=== PATIENT | female | born 1980 | race Caucasian/White ===

== ENCOUNTER 2018-04-07 19:47 | Emergency (ER) | payer MEDICARE, MEDICAID, SELFPAY ==
[2018-04-07 19:55] VITALS: BP 132/88; PULSE 73; RESP 22; TEMP 36.4; O2SAT 100
[2018-04-07] MEDS: diphenhydrAMINE 50 MG/ML VIAL (20:05)
[2018-04-07] MEDS: methylPREDNISolone SUCC 125 MG VIAL (20:06)
--- NOTE | 2018-04-07 20:24 | NUR.NOTE ---
Nursing Note: Pt continues to remain stable. VS normal - HR 66, O2 100% on RA. No complaints of symptoms at this time. Friend in room. Continue to monitor
--- NOTE | 2018-04-07 21:48 | ED.GENADUL ---
Disposition Clinical Impression: Bee sting Disposition: HOME Condition: Good Instructions: Insect Bite or Sting (ED) Additional Instructions: Please take medication as instructed. Please only use the epinephrine if you notice difficulty breathing, vomiting, diarrhea. If you notice any worsening of your symptoms, or any new symptoms such as vomiting, diarrhea, fever, chills, shortness of breath, chest pain, numbness, weakness, or fainting , please return immediately to the emergency department for reevaluation. Please follow up with your primary care provider as soon as possible for reassessment and reevaluation. As always, it was a pleasure participating in your medical care today. Prescriptions: Diphenhydramine HCl [Benadryl] 25 mg PO Q6H #100 capsule Epinephrine [Epipen 2-Presley] 0.3 mg IJ PRN PRN #2 auto.injct PRN Reason: Referrals: Yamil Hernandez MD [Primary Care Provider] - Medical Decision Making - Medical Decision Making This is a pleasant 37-year-old female who presents for evaluation of bee sting. Physical exam demonstrates no signs or symptoms consistent with anaphylaxis. She does demonstrate signs and symptoms consistent with a mild localized reaction secondary to the hymenoptera sting in her left hand. No evidence of in-place bee sting her. The patient was given Solu-Medrol and Benadryl here in the emergency department, and observed for an extended period. She had no worsening of her symptoms, and no signs of anaphylaxis during prolonged observation period. Patient was concerned for potential future anaphylaxis, and we did prescribe an EpiPen, as well as a new to home Benadryl use. We discussed red flags which to return the patient understands. I have extensively reviewed the treatment plan and discharge instructions with the patient and their family. I have addressed all patient concerns at this time. The patient and family was made aware of what symptoms to monitor for that would warrant a return to the emergency department. Discussed the plan with the patient and family, they demonstrate verbal understanding and agreement with our assessment and plan at this time. History of Present Illness - General Chief complaint: Allergic Stated complaint: UNKNOWN Time Seen by Provider: 04/07/18 21:47 - History of Present Illness Initial comments: This is a pleasant 37-year-old female with a past medical history of anxiety, bipolar disorder, depression, GERD, migraines, PTSD, carpal tunnel past surgical history of cholecystectomy, and tubal ligation family history of cancer, who presents today for evaluation of bee sting. 30 minutes prior to arrival the patient was stung on the thenar eminence of her left hand. She noticed some pain and swelling there, and was concerned that she may be having an allergic reaction. She came to the ER for further evaluation. Patient admits to some burning and tingling there, states that she thought her lips might be getting big. She denies any difficulty swallowing, breathing, she denies any vomiting or diarrhea. She denies any chest pain, shortness of breath, numbness, or weakness. She has no history of allergies to bees, she has been stung in the past with no problems. She denies any history of anaphylaxis. Patient denies any aggravating or relieving factors. She has no other complaints at this time. She denies any current IV or illicit drug use. - Related Data Naloxone HCl [Narcan Nasal Blanco] 4 mg NS PRN #2 spray 03/04/17 Topiramate 1 tab PO BID #180 tab 03/04/17 Butalbital/Acetamin./Caffeine [Fioricet] 1 - 2 tab-cap PO TID #42 tab-cap 04/08/17 Proventil Hfa 2 puff IH Q6H PRN #2 inhaler 09/01/17 Pantoprazole Sodium 40 mg PO BID #60 tab-cap 10/17/17 Propranolol HCl [Propranolol Hcl Er] 120 mg PO BID #180 tab-cap 10/17/17 Sertraline HCl 100 mg PO DAILY #90 tab-cap 10/17/17 Medroxyprogesterone Acetate [Depo-Provera] 150 mg IM Q 12 WEEKS #1 vial 11/14/17 ClonazePAM [Klonopin] 1 tab PO BID #60 tab-cap 01/15/18 LORazepam [Ativan] 2 mg PO TID #90 tab-cap 01/15/18 Ibuprofen 600 mg PO TID PRN #90 tablet 01/23/18 Lisdexamfetamine [Vyvanse] 50 mg PO QAM #30 cap 01/23/18 Rizatriptan Benzoate [Rizatriptan] 10 mg PO ONCE #12 tab 01/23/18 Terbinafine HCl 250 mg PO DAILY #30 tab-cap 01/23/18 Alosetron HCl 0.5 mg PO BID #60 tab 03/06/18 Baclofen 10 mg PO TID #30 tab-cap 03/06/18 Amoxicillin 500 mg PO TID #30 tab-cap 03/13/18 Diphenhydramine HCl [Benadryl] 25 mg PO Q6H #100 capsule 04/07/18 Epinephrine [Epipen 2-Presley] 0.3 mg IJ PRN PRN #2 auto.injct 04/07/18 Allergies Allergy/AdvReac Type Severity Reaction Status Date / Time adhesive Allergy RASH Unverified 04/07/18 19:58 latex Allergy RASH Unverified 04/07/18 19:58 Review of Systems Other: 10 point review of systems was performed, pertinent positives and negatives are noted in the history of present illness. Past Medical History - Past Medical History Medical history: GERD Migraine headaches Surgical history: cholecystectomy, bilateral tubal ligation Family history: cancer - Social History Alcohol use: none Drug use: none General Exam - Other Other exam information: 1.Const: Well-nourished, Well-developed, appearing stated age 2.Eyes: PERRL, no conjunctival injection, and symmetrical lids. 3.ENT: Atraumatic external nose and ears. Moist MM. Neck: Symmetric, trachea midline, No thyromegaly. No signs of airway compromise, angioedema, or lip swelling. 4.CVS: +S1/S2, No murmurs or gallops. Peripheral pulses 2+ and equal in all extremities. Brisk capillary refill in all extremities. 5.RESP: Unlabored respiratory effort. Clear to auscultation bilaterally. No wheezes rales or rhonchi 6.GI: Soft, Nontender/Nondistended, No hepatosplenomegaly. No guarding or rebound. 7.MSK: Normocephalic/Atraumatic, Extremities w/o deformity or ttp No cyanosis or clubbing, Normal movement of all extremities. Patient does demonstrate a small amount of erythema and minimal swelling of the thenar eminence on the left hand. No evidence of intact bee stinger. No signs of rash, maculopapular rash or evidence of hives. No signs of limb edema. 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 Sensation grossly intact, no focal neurologic deficits. 10.Psych: (AAO) x3. Appropriate mood and affect Course Vital Signs - 24 hr 04/07/18 19:55 Temperature 36.4 C L Pulse 73 Respiratory 22 Rate Blood Pressure 132/88 Pulse Oximetry 100
== END 2018-04-07 21:52 | disposition home or self-care (01) ==
PROVIDERS: Emergency Provider Student in an Organized Health Care Education/Training Program; PCP Family Medicine
DX: T63.441A Toxic effect of venom of bees, accidental (unintentional), initial encounter (principal); M79.642 Pain in left hand; R60.0 Localized edema; R20.8 Other disturbances of skin sensation
CPT/HCPCS: 96374; 96375; 99283; 99284; J1200; J2930

== ENCOUNTER 2018-05-07 20:31 | Emergency (ER) | payer MEDICARE, MEDICAID, SELFPAY ==
[2018-05-07 20:43] VITALS: BP 148/83; PULSE 67; RESP 18; TEMP 36.8
--- NOTE | 2018-05-07 20:55 | DI.RAD_ITS ---
SYMPTOM/DIAGNOSIS: DISTAL FOREARM AND HAND PAIN LEFT FOREARM: No fracture or dislocation is seen. The elbow and wrist are unremarkable as visualized. IMPRESSION: Negative left forearm. LEFT HAND: No fracture or dislocation is seen. IMPRESSION: Negative left hand.
--- NOTE | 2018-05-07 21:03 | ED.GENADUL_ITS ---
Discharge Plan Disposition Patient Disposition: HOME Condition: Stable Discharge Details Chief Complaint: GenMedical Clinical Impression: Contusion of left hand, Contusion of forearm, left Primary Care Provider: Yamil Hernandez ED Provider: Rikki Thorne Home Meds and New Rx's Prescriptions: New ibuprofen [IBU] 600 mg tablet 600 mg PO Q6H PRN (Reason: pain) Qty: 20 RF: 0 Continue naloxone [Narcan] 4 MG spray,non-aerosol 4 mg NS PRN Qty: 2 RF: 0 [id number] 1 EACH tablet 1 - 2 tab-cap PO TID Qty: 42 RF: 0 PROVENTIL HFA 18 GM HFA.AER.AD 2 puff Inhalation Q6H PRN Qty: 2 RF: 4 sertraline 100 MG tablet 100 mg PO DAILY Qty: 90 RF: 4 pantoprazole 40 MG tablet,delayed release (DR/EC) 40 mg PO BID Qty: 60 RF: 11 propranolol 120 MG capsule,extended release 24 hr 120 mg PO BID Qty: 180 RF: 3 medroxyprogesterone [Depo-Provera] 150 MG/1 ML suspension 150 mg IM Q 12 WEEKS Qty: 1 RF: 3 Terbinafine HCl 250 MG tablet 250 mg PO DAILY Qty: 30 RF: 2 baclofen 10 MG tablet 10 mg PO TID Qty: 30 RF: 2 alosetron 0.5 MG tablet 0.5 mg PO BID Qty: 60 RF: 4 rizatriptan 10 MG tablet 10 mg PO ONCE Qty: 12 RF: 4 topiramate 200 MG tablet 1 tab PO BID Qty: 180 RF: 4 lorazepam 2 MG tablet 2 mg PO TID Qty: 90 RF: 2 clonazepam [Klonopin] 2 MG tablet 1 tab PO BID Qty: 60 RF: 2 amoxicillin 500 MG tablet 500 mg PO TID Qty: 30 RF: 0 lisdexamfetamine [Vyvanse] 50 MG capsule 50 mg PO QAM Qty: 30 RF: 0 diphenhydramine HCl [Benadryl] 25 MG capsule 25 mg PO Q6H Qty: 100 RF: 0 epinephrine [EpiPen 2-Presley] 0.3 MG/0.3 ML auto-injector 0.3 mg IJ PRN PRNQty: 2 RF: 5 Discontinued ibuprofen 800 MG tablet 800 mg PO TID Qty: 90 RF: 3 Discharge Instructions Instructions: Contusion in Adults (ED) Additional Instructions: Feel free to return for any new or worsening symptoms otherwise rest your left hand and wrist and if not improving over the next 2 weeks follow-up with your primary care provider for reassessment Referrals: Yamil Hernandez MD [Primary Care Provider] - 2 weeks (If not improving over the next 2 weeks follow-up with your primary care provider for reassessment) Medical Decision Making MDM Narrative Medical decision making narrative: Patient presenting to the emergency department for chief complaint of left hand and distal forearm pain after punching a car window with the side of her wrist and forearm 3 days ago. Patient denies any other injury or trauma and states that it is only mildly 8 until the past 24 hours which pain is increased. Patient has diffuse tenderness throughout the entire hand and distal forearm with no focal findings but patient seems to slightly be exaggerating in symptoms making it difficult to pinpoint area of most concern is she states that everything hurts patient does have hesitant but full range of motion and neurosensory exam is normal. Plan to perform radiological imaging to rule out fracture but more suspect contusion. Pending results given patient states significant amount of pain after taking Tylenol and ibuprofen patient given Tylenol 3. After review radiological imaging and radiologist interpretation showing no acute fracture dislocation patient was given a universal wrist splint, prescription for ibuprofen 600 mg every 6 hours, and encouraged to rest the extremity. Given my concern more for soft tissue injury I feel that it is appropriate patient follows up with her primary care provider in 2 weeks for reassessment if not better. After discussion of diagnosis and plan of care patient states no further needs, questions, or concerns at time. Imaging Data Radiologic Study: Attestation: I personally reviewed and interpreted this imaging study as follows: Imaging: X-Ray My impression: No acute fracture or dislocation noted of left hand Radiologic Study #2: Attestation: I personally reviewed and interpreted this imaging study as follows: Imaging: X-Ray My impression: No acute fracture or dislocation noted of left forearm HPI - General Adult General Date/Time Provider Initiated Documentation: 05/07/18 20:32 . Limitations to Documentation: no limitations . Information obtained by: patient . History of Present Illness 37 year old F presents to the emergency department with the chief complaint of left hand/forearm pain, described as moderate, with intensity rated at 7. Quality is described as aching, and is localized to the left and upper extremity. Patient reports no radiation. Patient started experiencing this day(s) (3) and it has been constant. No relieving factors improve symptom(s) , No exacerbating factors reported . Patient notes no other symptoms.. Patient did receive the following treatments prior to arrival, NSAID Related Data Home Medications Medication Instructions Recorded Confirmed naloxone [Narcan] 4 mg NS PRN #2 spray 03/04/17 [id number] 1 - 2 tab-cap PO TID #42 tab-cap 04/08/17 Previous Rx's Medication Instructions Recorded pantoprazole 40 mg PO BID #60 tab-cap 10/17/17 propranolol 120 mg PO BID #180 tab-cap 10/17/17 sertraline 100 mg PO DAILY #90 tab-cap 10/17/17 medroxyprogesterone [Depo-Provera] 150 mg IM Q 12 WEEKS #1 vial 11/14/17 alosetron 0.5 mg PO BID #60 tab 03/06/18 baclofen 10 mg PO TID #30 tab-cap 03/06/18 diphenhydramine HCl [Benadryl] 25 mg PO Q6H #100 capsule 04/07/18 epinephrine [EpiPen 2-Presley] 0.3 mg IJ PRN PRN #2 auto.injct 04/07/18 amoxicillin 500 mg PO TID #30 tab-cap 04/10/18 clonazepam [Klonopin] 1 tab PO BID #60 tab-cap 04/10/18 lisdexamfetamine [Vyvanse] 50 mg PO QAM #30 cap 04/10/18 lorazepam 2 mg PO TID #90 tab-cap 04/10/18 rizatriptan 10 mg PO ONCE #12 tab 04/10/18 topiramate 1 tab PO BID #180 tab 04/10/18 ibuprofen [IBU] 600 mg PO Q6H PRN #20 tab 05/07/18 Allergies Allergy/AdvReac Type Severity Reaction Status Date / Time adhesive Allergy RASH Unverified 04/10/18 11:10 latex Allergy RASH Unverified 04/10/18 11:10 General Stated Complaint: GenMedical KATHE: 4 Review of Systems Review of Systems All systems reviewed & are unremarkable except as noted in HPI and below Musculoskeletal Reports as per HPI PFSH Family History Father Sleep apnea Maternal Uncle Diabetes Medical History Depression Migraine Morbid obesity gallstones Social History Smoking/Tobacco Use Status: Never Surgical History Ligation of fallopian tube Exam Const General: cooperative, no acute distress and not ill appearing Orientation: alert, awake and oriented x3 HENMT Mouth: moist mucous membranes Resp Effort & Inspection: normal respiratory effort, able to speak in complete sentences and no respiratory distress Cardio Rate: regular rate Rhythm: regular rhythm Skin General skin exam: no rashes or lesions noted Neuro General: alert, awake, oriented x3, moves all extremities and no focal motor deficits Sensory Exam: no sensory deficits noted Extrem Left upper extremity: shoulder/upper arm, elbow/forearm Details: tenderness Location: of the mid-shaft forearm, swelling and normal ROM; no ecchymosis, wrist Details: swelling, normal ROM and radial pulse present; no ecchymosis and hand Details: neuromotor exam normal, neurosensory exam normal, tendon exam normal and swelling Location: of the dorsal hand; no ecchymosis Course Vital Signs Temperature 36.8 C 05/07/18 20:43 Pulse 67 05/07/18 20:43 Respiratory Rate 05/07/18 20:43 Blood Pressure 148/83 H 05/07/18 20:43 Temperature 36.8 C 05/07/18 20:43 Pulse 67 05/07/18 20:43 Respiratory Rate 18 05/07/18 20:43 Blood Pressure 148/83 H 05/07/18 20:43
--- NOTE | 2018-05-07 21:18 | DI.VRAD_ITS ---
EXAM: XR Left Forearm, 2 Views EXAM DATE/TIME: 05/07/2018 9:12 PM CLINICAL HISTORY: 37 years old, female; Pain; Lower or forearm; Left; Patient HX: Distal forearm pain TECHNIQUE: XR Left forearm 2 views. COMPARISON: CR - RIGHT ELBOW COMPLETE 03/17/2018 12:23 PM FINDINGS: Bones/joints: Normal. Soft tissues: Normal. IMPRESSION: Normal 2 view evaluation of the left forearm. Dictated and Authenticated by: Willie Stewart MD. Ordering:ANTHONY LONG MD
--- NOTE | 2018-05-07 21:19 | DI.VRAD_ITS ---
EXAM: XR Left Hand Complete, 3 or more Views EXAM DATE/TIME: 05/07/2018 9:12 PM CLINICAL HISTORY: 37 years old, female; Pain; Hand; Left; Patient HX: Hand pain TECHNIQUE: XR Left hand 3 or more views. COMPARISON: No relevant prior studies available. FINDINGS: Bones/joints: No acute fractures are detected. Soft tissues: There is apparent mild dorsal soft tissue swelling overlying the metacarpals seen in the lateral view. IMPRESSION: Mild dorsal soft tissue swelling overlies the metacarpals. Dictated and Authenticated by: Willie Stewart MD. Ordering:ANTHONY LONG MD
--- NOTE | 2018-05-07 21:35 | NUR.NOTE ---
Left wrist splint applied as per STORE ASSOCIATE order. Pt verbalizes understanding of use and is able to return demonstration of use. Nursing Note:
[2018-05-07 22:01] VITALS: BP 130/80; PULSE 80; RESP 18; TEMP 36.9; O2SAT 99
== END 2018-05-07 21:49 | disposition home or self-care (01) ==
LOC: ER 22:01
PROVIDERS: Emergency Provider Nurse Practitioner Family; PCP Family Medicine
DX: S60.222A Contusion of left hand, initial encounter (principal); S50.12XA Contusion of left forearm, initial encounter; W22.09XA Striking against other stationary object, initial encounter
CPT/HCPCS: 29125; 99284; 73090; 73130; L3908

== ENCOUNTER 2018-05-08 11:57 | Outpatient (REF) | payer MEDICARE, MEDICAID, SELFPAY | END 2018-05-08 12:17 | LOC: LBN 11:57 | PROVIDERS: PCP Family Medicine; Visit Provider Nurse Practitioner Family | DX: R30.0 Dysuria (principal) | CPT/HCPCS: 87077; 87086; 87186 ==

== ENCOUNTER 2018-05-20 17:32 | Outpatient (REF) | payer MEDICARE, MEDICAID, SELFPAY | END 2018-05-20 17:52 | LOC: NCHCN 17:32 | PROVIDERS: PCP Family Medicine; Visit Provider Obstetrics & Gynecology | DX: R30.0 Dysuria (principal) | CPT/HCPCS: 87086 ==

== ENCOUNTER 2018-05-27 11:56 | Outpatient (CLI) | payer MEDICARE, MEDICAID, SELFPAY ==
--- NOTE | 2018-05-27 08:24 | DI.RAD_ITS ---
SYMPTOM/DIAGNOSIS: WRIST PAIN, M25.539 LEFT WRIST: Four views. Comparison is made with 05/07/18. No acute or healing fracture or dislocation is seen. The articular surfaces are well maintained. The soft tissues are unremarkable. IMPRESSION: Negative examination.
== END 2018-05-27 12:16 ==
PROVIDERS: PCP Family Medicine; Visit Provider Internal Medicine
DX: M25.532 Pain in left wrist (principal)
CPT/HCPCS: 73110

== ENCOUNTER 2018-06-07 19:38 | Emergency (ER) | payer MEDICARE, MEDICAID, SELFPAY ==
[2018-06-07 19:48] VITALS: BP 132/84; PULSE 68; RESP 16; TEMP 36.2; O2SAT 99
--- NOTE | 2018-06-07 20:14 | W.ED.GENAD ---
Discharge Plan Disposition Patient Disposition: HOME Discharge Details Chief Complaint: FlankPain Clinical Impression: Acute right flank pain, Dysuria Primary Care Provider: Yamil Hernandez ED Provider: Junior Akbar Home Meds and New Rx's Prescriptions: New cephalexin [Keflex] 500 mg capsule 500 mg PO BID Qty: 19 RF: 0 No Action ibuprofen 800 mg tablet 800 mg PO QID PRN (Reason: pain) Qty: 60 RF: 2 PROVENTIL HFA 18 GM HFA.AER.AD 2 puff Inhalation Q6H PRN Qty: 2 RF: 4 sertraline 100 MG tablet 100 mg PO DAILY Qty: 90 RF: 4 propranolol 120 MG capsule,extended release 24 hr 120 mg PO BID Qty: 180 RF: 3 medroxyprogesterone [Depo-Provera] 150 MG/1 ML suspension 150 mg IM Q 12 WEEKS Qty: 1 RF: 3 Terbinafine HCl 250 MG tablet 250 mg PO DAILY Qty: 30 RF: 2 baclofen 10 MG tablet 10 mg PO TID Qty: 30 RF: 2 topiramate 200 MG tablet 1 tab PO BID Qty: 180 RF: 4 lorazepam 2 MG tablet 2 mg PO TID Qty: 90 RF: 2 clonazepam [Klonopin] 2 MG tablet 1 tab PO BID Qty: 60 RF: 2 lisdexamfetamine [Vyvanse] 50 MG capsule 50 mg PO QAM Qty: 30 RF: 0 epinephrine [EpiPen 2-Presley] 0.3 MG/0.3 ML auto-injector 0.3 mg IJ PRN PRNQty: 2 RF: 5 Discharge Instructions Additional Instructions: Take ibuprofen 600mg every 6-8 hours as needed for pain. Please take full course of antibiotic as prescribed. Please follow-up with your primary care physician. Call tomorrow. Return to the ER should you have any worsening pain or new concerning symptoms. Referrals: Yamil Hernandez MD [Primary Care Provider] - Medical Decision Making 20:15 --37-year-old female here with right flank pain extending right lower quadrant. Suspect renal colic. Plan to CT abdomen pelvis to assess for acute surgical pathology. UA pending. Toradol IM for pain. 21:45 -- UA reviewed: +blood, neg LE CT of the abd and pelvis interpreted by radiology: No acute findings. No nephrolithiasis or collecting system obstruction. Appendix with no findings to suggest acute appendicitis, small fat-containing umbilical hernia. Patient reassessed and continues to have pain in RLQ and right suprapubic radiating to back, described as burning. 10:42 --ultrasound of the pelvis as interpreted by radiology: Normal blood flow to the right ovary. No torsion. The etiology for her symptoms at this point. Given burning, plan to check urine culture, I will start Keflex 500 twice daily for 5 days. I reviewed results with patient. Patient was instructed to follow-up with her primary care physician and I stressed that she return should she have any worsening or new concerning symptoms. HPI General Date/Time Provider Initiated Documentation: 06/07/18 20:04. HPI Narrative: 37-year-old female with history of bipolar disorder, chronic pain syndrome, morbid obesity, here with chief complaint of right flank pain. Pain started late this morning and has persisted over the past 8 hours. Pain is severe, sharp, constant, localized to her right flank and extending into her right lower abdomen. Pain is worse with deep inspiration. No associated hematuria, dysuria, vaginal discharge, fever. She has had some nausea. No vomiting. Related Data Home Medications Medication Instructions Recorded Confirmed propranolol 120 mg PO BID #180 tab-cap 10/17/17 06/07/18 sertraline 100 mg PO DAILY #90 tab-cap 10/17/17 06/07/18 medroxyprogesterone [Depo-Provera] 150 mg IM Q 12 WEEKS #1 vial 11/14/17 06/07/18 baclofen 10 mg PO TID #30 tab-cap 03/06/18 06/07/18 epinephrine [EpiPen 2-Presley] 0.3 mg IJ PRN PRN #2 auto.injct 04/07/18 06/07/18 clonazepam [Klonopin] 1 tab PO BID #60 tab-cap 04/10/18 06/07/18 lisdexamfetamine [Vyvanse] 50 mg PO QAM #30 cap 04/10/18 06/07/18 lorazepam 2 mg PO TID #90 tab-cap 04/10/18 06/07/18 topiramate 1 tab PO BID #180 tab 04/10/18 06/07/18 ibuprofen 800 mg tablet 800 mg PO QID PRN #60 tab 05/25/18 06/07/18 cephalexin [Keflex] 500 mg PO BID #19 cap 06/07/18 Previous Rx's Medication Instructions Recorded propranolol 120 mg PO BID #180 tab-cap 10/17/17 sertraline 100 mg PO DAILY #90 tab-cap 10/17/17 medroxyprogesterone [Depo-Provera] 150 mg IM Q 12 WEEKS #1 vial 11/14/17 baclofen 10 mg PO TID #30 tab-cap 03/06/18 epinephrine [EpiPen 2-Presley] 0.3 mg IJ PRN PRN #2 auto.injct 04/07/18 clonazepam [Klonopin] 1 tab PO BID #60 tab-cap 04/10/18 lisdexamfetamine [Vyvanse] 50 mg PO QAM #30 cap 04/10/18 lorazepam 2 mg PO TID #90 tab-cap 04/10/18 topiramate 1 tab PO BID #180 tab 04/10/18 ibuprofen 800 mg tablet 800 mg PO QID PRN #60 tab 05/25/18 cephalexin [Keflex] 500 mg PO BID #19 cap 06/07/18 Allergies Allergy/AdvReac Type Severity Reaction Status Date / Time adhesive Allergy RASH Unverified 06/07/18 19:57 latex Allergy RASH Unverified 06/07/18 19:57 General Stated Complaint: FlankPain KATHE: 3 Review of Systems Review of Systems All systems reviewed & are unremarkable except as noted in HPI and below Gastrointestinal Reports abdominal pain and Denies vomiting Genitourinary Denies dysuria PFSH Female Reproductive History Menstrual control method: progesterone injection Total pregnancies: 4 Exam Const General: cooperative and no acute distress [facility] Head: normocephalic and atraumatic Mouth: moist mucous membranes Eyes Conjunctivae: normal conjunctivae Sclera: normal sclerae EOM: EOM intact bilaterally Neck Neck: trachea midline and supple Resp Auscultation: clear to auscultation bilaterally, no rales, no rhonchi and no wheezes Cardio Jugular venous pressure: no JVD Rate: regular rate and not tachycardic Rhythm: regular rhythm GI Palpation: soft, not firm, no guarding, no masses and not rigid Skin General skin exam: no rashes or lesions noted Neuro General: alert, awake, oriented x3 and tone normal Extrem General: no edema Psych Appearance: grossly normal Mental Status: mental status grossly normal Speech and Movement: speech and movement normal Course Vital Signs Temperature 36.2 C L 06/07/18 19:48 Pulse 68 06/07/18 19:48 Respiratory Rate 16 06/07/18 19:48 Blood Pressure 132/84 06/07/18 19:48 Pulse Oximetry 99 06/07/18 19:48 Temperature 36.2 C L 06/07/18 19:48 Temperature Source Temporal Artery Scan 06/07/18 19:48 Pulse 68 06/07/18 19:48 Respiratory Rate 16 06/07/18 19:48 Respiratory Effort Non-Labored 06/07/18 19:55 Blood Pressure 132/84 06/07/18 19:48 Blood Pressure Position Sitting 06/07/18 19:48 Pulse Oximetry 99 06/07/18 19:48 Oxygen Delivery Method Room Air 06/07/18 19:48 Oxygen Flow Rate 0 06/07/18 19:48 Pain Level 10 06/07/18 19:55
[2018-06-07] MEDS: Ketorolac 30 MG/ML VIAL IM (20:22)
[2018-06-07 20:25] LABS: Bilirubin Small (Negative); Blood Large (Negative); Clarity Clear; Glucose Negative (Negative); Ketones Negative (Negative); Leukocyte Esterase Negative (Negative); Nitrite Negative (Negative); Specific Gravity >= 1.030 (1.005-1.025); Urobilinogen 0.2 EU/dL (Up TO 0.2); pH 5.5 (5-8)
[2018-06-07 20:39] LABS: Bacteria Moderate HPF (Negative); C & S Indicated? No/Sq. Contamination; Casts Negative LPF (Negative); Crystals Negative HPF (Negative); Epithelial Cells Many HPF (Negative); Mucus Negative (Negative); RBC Negative (0-2)
--- NOTE | 2018-06-07 20:44 | DI.CT_ITS ---
SYMPTOMS/DIAGNOSIS: RIGHT FLANK PAIN ABDOMINAL AND PELVIC CT: CT examination of the abdomen and pelvis was performed without contrast administration. Visualized lung bases are clear. Visualized portions of liver and spleen appear intact. Previous cholecystectomy noted. No biliary dilatation seen. Pancreas is unremarkable by noncontrast criteria. Abdominal aorta is of normal diameter. Small fat-containing ventral hernia noted. No abdominal or pelvic adenopathy seen. Appendix is normal. No focal bowel pathology. 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 Adrenals appear normal bilaterally. The kidneys are normal in size and shape with no renal mass, hydronephrosis or nephrolithiasis. No ureterolithiasis seen. Urinary bladder is essentially empty, CONCLUSION: Negative abdominal and pelvic CT, no evidence of urinary tract calcification or obstruction.
--- NOTE | 2018-06-07 21:36 | DI.VRAD_ITS ---
EXAM: CT Abdomen and Pelvis Without Intravenous Contrast CLINICAL HISTORY: 37 years old, female; Pain; Other: Rt flank; Patient HX: Rt flank pain TECHNIQUE: Axial computed tomography images of the abdomen and pelvis without intravenous contrast. All CT scans at this facility use at least one of these dose optimization techniques: automated exposure control; mA and/or kV adjustment per patient size (includes targeted exams where dose is matched to clinical indication); or iterative reconstruction. Coronal and sagittal reformatted images were created and reviewed. COMPARISON: [facility] 01/30/2015 4:44 PM FINDINGS: Lung bases: No focal pathology. No mass. No consolidation. ABDOMEN: Liver: The visualized liver is unremarkable. Gallbladder and bile ducts: Cholecystectomy. No ductal dilation. Pancreas: No focal pathology. No ductal dilation. Spleen: The visualized spleen is unremarkable. Adrenals: No focal pathology. No mass. Kidneys and ureters: No nephrolithiasis or collecting system obstruction. Stomach and bowel: No focal pathology. No obstruction. No mucosal thickening. PELVIS: Appendix: No findings to suggest acute appendicitis. Bladder: The urinary bladder is decompressed. No stones. Reproductive: Unremarkable as visualized. ABDOMEN and PELVIS: Intraperitoneal space: No free air. No significant fluid collection. Bones/joints: Mild degenerative changes in the lumbar spine. No acute fracture. No dislocation. Soft tissues: Small fat-containing umbilical hernia. Vasculature: No focal pathology. No abdominal aortic aneurysm. Lymph nodes: No enlarged lymph nodes. IMPRESSION: 1. No acute findings. 2. No nephrolithiasis or collecting system obstruction. 3. Incidental findings as described. Dictated and Authenticated by: Saundra Nath MD. Ordering:DAMEON FERGUSON MD
[2018-06-07 21:51] VITALS: BP 136/56; PULSE 66; RESP 18; TEMP 36.5; O2SAT 99
--- NOTE | 2018-06-07 22:02 | DI.US_ITS ---
SYMPTOMS/DIAGNOSIS: PAIN IN RIGHT LOWER ABDOMEN, CONCERN FOR TORSION PELVIC ULTRASOUND: Pelvic ultrasound was performed transabdominally and transvaginally. The left ovary was nonvisualized. The uterus is unremarkable in appearance except for a presumed 13 mm in diameter fundal anterior fibroid. Endometrial stripe is homogeneous and 4 mm in thickness. No free fluid identified in the cul-de-sac. Limited scanning of the kidneys is unremarkable. CONCLUSION: Negative pelvic ultrasound. Left ovary nonvisualized. The left ovary was unremarkable in appearance on CT.
[2018-06-07] MEDS: Acetaminophen 325 MG TAB 650 MG PO (22:07)
[2018-06-07] MEDS: Cephalexin 500 MG CAP PO (22:44)
--- NOTE | 2018-06-07 22:51 | DI.VRAD_ITS ---
EXAM: US Pelvis Complete, Transabdominal CLINICAL HISTORY: 37 years old, female; Pain; Pelvic pain TECHNIQUE: Real-time transabdominal pelvic ultrasound (complete) with image documentation. COMPARISON: No relevant prior studies available. FINDINGS: Uterus/cervix: Endometrium is not well-seen transabdominally. No myometrial mass. Right ovary: Grossly normal appearance of the right ovary transabdominally. Normal blood flow. Left ovary: Not seen transabdominally. Free fluid: No free fluid. Other findings: No right hydronephrosis. No left hydronephrosis. IMPRESSION: The left ovary was not seen. No gross pathology transabdominally. EXAM: US Pelvis, Transvaginal CLINICAL HISTORY: 37 years old, female; Pain; Pelvic pain TECHNIQUE: Real-time transvaginal pelvic ultrasound (complete) with image documentation. Transvaginal imaging was used for better evaluation of the endometrium and adnexa. COMPARISON: CT renal colic wo 06/07/2018 8:29 PM FINDINGS: Uterus/cervix: 13 mm anterior mid body uterine fibroid. The endometrium measures 4 mm and is normal in morphology transvaginally. Right ovary: Normal morphology of the right ovary. Normal flow. Normal blood flow. Left ovary: The left ovary was not seen. Free fluid: No free fluid. IMPRESSION: 1. No acute findings. 2. 13 mm anterior mid body uterine fibroid. 3. The left ovary was not seen. Normal morphology of the right ovary. Dictated and Authenticated by: Saundra Nath MD. Ordering:DAMEON FERGUSON MD
== END 2018-06-07 22:57 | disposition home or self-care (01) ==
PROVIDERS: Emergency Provider Student in an Organized Health Care Education/Training Program; PCP Family Medicine
DX: R10.31 Right lower quadrant pain (principal); B96.89 Other specified bacterial agents as the cause of diseases classified elsewhere
CPT/HCPCS: 81025; 96372; 99284; 74176; 76830; 76856; 81003; 81015; 87086; 99285; J1885

== ENCOUNTER 2018-07-31 14:11 | Outpatient (REF) | payer MEDICARE, MEDICAID, SELFPAY ==
[2018-08-03 14:26] LABS: Chlamydia Result Negative; GC Result Negative
== END 2018-07-31 14:31 ==
LOC: LBN 14:11
PROVIDERS: PCP Family Medicine; Visit Provider Nurse Practitioner Family
DX: Z11.3 Encounter for screening for infections with a predominantly sexual mode of transmission (principal)
CPT/HCPCS: 87491; 87591; 87086

== ENCOUNTER 2018-08-05 13:42 | Outpatient (CLI) | payer MEDICARE, MEDICAID, SELFPAY ==
[2018-08-05 14:55] LABS: Bilirubin Negative (Negative); Blood Large (Negative); Clarity Sl Cloudy; Glucose Negative (Negative); Ketones Negative (Negative); Leukocyte Esterase Negative (Negative); Nitrite Negative (Negative); Specific Gravity >= 1.030 (1.005-1.025); Urobilinogen 0.2 EU/dL (Up TO 0.2)
[2018-08-05 15:06] LABS: RBC 0-2 (0-2); WBC 0-2 HPF (0-5)
[2018-08-05 15:07] LABS: Bacteria Moderate HPF (Negative); C & S Indicated? No/Sq. Contamination; Casts Negative LPF (Negative); Crystals Negative HPF (Negative); Epithelial Cells Many HPF (Negative); Mucus Trace (Negative)
== END 2018-08-05 14:02 ==
PROVIDERS: Nurse Practitioner Women's Health; PCP Family Medicine; Visit Provider Nurse Practitioner Family
DX: M54.9 Dorsalgia, unspecified (principal); R31.9 Hematuria, unspecified; R30.0 Dysuria
CPT/HCPCS: 81003; 81015

== ENCOUNTER 2018-08-14 14:17 | Outpatient (REF) | payer MEDICARE, MEDICAID, SELFPAY | END 2018-08-14 14:37 | LOC: LBN 14:17 | PROVIDERS: PCP Family Medicine; Visit Provider Nurse Practitioner Family | DX: R35.0 Frequency of micturition (principal) | CPT/HCPCS: 87086 ==

== ENCOUNTER 2018-09-17 00:44 | Emergency (ER) | payer MEDICARE, MEDICAID, SELFPAY ==
[2018-09-17 00:44] VITALS: BP 140/77; PULSE 78; RESP 18; TEMP 36.4; O2SAT 94
--- NOTE | 2018-09-17 00:52 | DI.CT_ITS ---
SYMPTOM/DIAGNOSIS: ABD PAIN ABDOMEN AND PELVIC CT: Abdomen and pelvic CT was performed with an intravenous injection of 100 cc's of Omnipaque 350. There has been prior surgery with a cholecystectomy 6 months prior to this exam. The lower thorax is unremarkable. The liver is normal. The patient is status post cholecystectomy. The pancreas is normal. There is no ductal dilatation. The spleen is normal. There is no evidence of splenic enlargement or a focal abnormality. The adrenals are normal. The kidneys are normal. There is no evidence of hydronephrosis. Fluid, liquid and stool are noted in the colon. There is nonspecific fluid filled small bowel loops with questionable minimal thickening. There is no evidence of obstruction. There is no evidence of an acute appendix. The bladder is partially decompressed. No gross abnormality is seen. The reproductive organs as visualized are unremarkable. There is no evidence of free air or free fluid in the intraperitoneal space. No acute bony abnormality is noted with mild degenerative changes identified in the spine. A tiny fat containing sisi-umbilical hernia is evident. The aorta is normal with no evidence of an aneurysm. There is no evidence of lymphadenopathy. IMPRESSION: There is a nonspecific bowel gas pattern which could represent a mild enteritis/diarrheal disease. These findings to be correlated with the patient's clinical status.
[2018-09-17 01:06] LABS: Bilirubin Negative (Negative); Blood Moderate (Negative); Clarity Clear; Glucose Negative (Negative); Ketones Negative (Negative); Leukocyte Esterase Negative (Negative); Nitrite Negative (Negative); Specific Gravity 1.025 (1.005-1.025); Urobilinogen 0.2 EU/dL (Up TO 0.2)
--- NOTE | 2018-09-17 01:09 | ED.GENADUL_ITS ---
Discharge Plan Disposition Patient Disposition: HOME Condition: Good Discharge Details Chief Complaint: Abd Prob Clinical Impression: Pancreatitis, Gastroenteritis Reason For Visit: CAITLIN Primary Care Provider: Yamil Hernandez ED Provider: Adam Jha Home Meds and New Rx's Prescriptions: New dicyclomine 20 mg tablet 20 mg PO TID Qty: 10 RF: 0 No Action metronidazole 500 mg tablet 500 mg PO BID Qty: 14 RF: 0 clonazepam [Klonopin] 2 mg tablet 2 mg PO BID Qty: 60 RF: 2 lorazepam 2 mg tablet 2 mg PO TID Qty: 90 RF: 2 Vyvanse 50 mg capsule 50 mg PO QAM MDD 50 mg Qty: 30 RF: 0 PROVENTIL HFA 18 GM HFA.AER.AD 2 puff Inhalation Q6H PRN Qty: 2 RF: 4 sertraline 100 MG tablet 100 mg PO DAILY Qty: 90 RF: 4 propranolol 120 MG capsule,extended release 24 hr 120 mg PO BID Qty: 180 RF: 3 medroxyprogesterone [Depo-Provera] 150 MG/1 ML suspension 150 mg IM Q 12 WEEKS Qty: 1 RF: 3 Terbinafine HCl 250 MG tablet 250 mg PO DAILY Qty: 30 RF: 2 baclofen 10 MG tablet 10 mg PO TID Qty: 30 RF: 2 topiramate 200 MG tablet 1 tab PO BID Qty: 180 RF: 4 ibuprofen 800 mg tablet 800 mg PO QID PRN (Reason: pain) Qty: 60 RF: 2 epinephrine [EpiPen 2-Presley] 0.3 MG/0.3 ML auto-injector 0.3 mg IJ PRN PRNQty: 2 RF: 5 Discharge Instructions Instructions: Pancreatitis (ED), Gastroenteritis (ED) Additional Instructions: Please drink 10-12 cups of water per day. Please avoid any fatty foods or greasy foods or significantly sugary foods. Please follow-up with your primary care provider in your [facility] specialist as soon as possible. Avoid any alcohol. If you notice any worsening of your symptoms, or any new symptoms such as vomiting, diarrhea, fever, chills, shortness of breath, chest pain, numbness, weakness, or fainting , please return immediately to the emergency department for reevaluation. Please follow up with your primary care provider as soon as possible for reassessment and reevaluation. As always, it was a pleasure participating in your medical care today. Referrals: Yamil Hernandez MD [Primary Care Provider] - Medical Decision Making This is a 37-year-old female who presents for evaluation of 2 years of abdominal pain she has had notable workups at [facility] all of which have been negative per the patient. She states that today and yesterday her symptoms got slightly worse, abdominal pain is generalized throughout, it is associated with nausea but no vomiting. No associated diarrhea. No red flags of fever or chills. Physical exam demonstrates mild but generalized abdominal tenderness throughout. Location of pain does include right lower quadrant. Due to the chronicity of the patient's symptoms, and the clinical exam I feel that an acute surgical abdominal process is unlikely. However we will get a CT scan per the patient's request and to rule out potential appendicitis or other acute abdominal pathology. We will give a GI cocktail, Bentyl, and Zofran. 1:[address] scan has returned and shows no evidence of severe acute process. Nonspecific bowel gas pattern, may represent mild enteritis. We are still pending labs at this time. Vital signs are reassuring. I do feel that the patient's labs are relatively benign she can be discharged home with close follow-up with her specialist at [facility]. Feel her symptoms are most likely from a mild gastroenteritis. 2:33 AM The remainder of the patient's laboratory workup has returned, lipase is minimally elevated suggesting potential mild early pancreatitis, electrolytes are benign, anion gap is minimally elevated. BUN/creatinine ratio does suggest mild dehydration. Urinalysis shows a small amount of RBCs but no evidence of significant infection. No signs of urolithiasis on CT scan. After Bentyl and GI cocktail the patient does have some improvement of her symptoms. Vital signs continue to remain reassuring. I feel the patient signs and symptoms are most consistent with viral gastroenteritis causing a very mild viral pancreatitis. They do feel that she can be safely discharged home. Patient has been rehydrated, repeat abdominal exam shows no signs of an acute surgical abdomen. Clinical symptoms are inconsistent with acute appendicitis, or catastrophic abdominal emergency. Patient will be discharged home with close follow-up with her PCP. I have extensively reviewed the treatment plan and discharge instructions with the patient and their family. I have addressed all patient concerns at this time. The patient and family was made aware of what symptoms to monitor for that would warrant a return to the emergency department. Discussed the plan with the patient and family, they demonstrate verbal understanding and agreement with our assessment and plan at this time. FINDINGS: Lower thorax: No acute findings. ABDOMEN: Liver: Normal. No mass. Gallbladder and bile ducts: Prior cholecystectomy. No ductal dilation. Pancreas: Normal. No ductal dilation. Spleen: Normal. No splenomegaly. Adrenals: Normal. No mass. Kidneys and ureters: Normal. No hydronephrosis. Stomach and bowel: Fluid/liquid stool in the colon. Nonspecific fluid-filled small bowel loops with questionable minimal thickening No obstruction. Appendix: No evidence of appendicitis. PELVIS: Bladder: Partially decompressed Reproductive: Unremarkable as visualized. ABDOMEN and PELVIS: Intraperitoneal space: Normal. No free air. No significant fluid collection. Bones/joints: No acute fracture. No dislocation. Mild degenerative changes in the spine Soft tissues: Tiny fat-containing periumbilical hernia Vasculature: Normal. No abdominal aortic aneurysm. Lymph nodes: Normal. No enlarged lymph nodes. IMPRESSION: Nonspecific bowel gas pattern which may represent mild enteritis/diarrheal disease. Correlate clinically Thank you for allowing us to participate in the care of your patient. Dictated and Authenticated by: Faheem Mccarthy MD 09/17/2018 1:45 AM Eastern Time ([place] & [place]) HPI General Date/Time Provider Initiated Documentation: 09/17/18 00:51 . HPI Narrative: This is a 37-year-old female With a past medical history of anxiety, bipolar, disorder, depression, gastroesophageal reflux disease, migraine headaches, PTSD, carpal tunnel, chronic chest and abdominal pain and bilateral leg pain, past surgical history of a tubal ligation and cholecystectomy. She presents today for abdominal pain. She states that for the last 2 years she has had achy generalized abdominal pain with associated nausea. She has had multiple EGDs and colonoscopies at [facility], all of which have been negative. She states that out of frustration for them not being able to find the answer she is now going to go to the [facility] later this year for further evaluation. She presents tonight via EMS for complaint of this abdominal pain. She states that over the last day and a half she feels that it is gotten slightly worse. She has had associated nausea but no vomiting. She denies any dysuria, hematuria diarrhea, hematochezia, melena or acholic stool. Pain seems to be unrelated to food. It is all over her abdomen including her epigastric region, the left upper the left lower, and right lower regions. She denies any pelvic discharge, vaginal discharge, or pelvic pain. Patient denies any other modifying factors. She has no other complaints at this time. Related Data Home Medications Medication Instructions Recorded Confirmed propranolol 120 mg PO BID #180 tab-cap 18 08/14/18 sertraline 100 mg PO DAILY #90 tab-cap 10/17/17 08/14/18 medroxyprogesterone [Depo-Provera] 150 mg IM Q 12 WEEKS #1 vial 11/14/17 08/14/18 baclofen 10 mg PO TID #30 tab-cap 03/06/18 08/14/18 epinephrine [EpiPen 2-Presley] 0.3 mg IJ PRN PRN #2 auto.injct 04/07/18 08/14/18 topiramate 1 tab PO BID #180 tab 04/10/18 08/14/18 clonazepam 2 mg tablet 2 mg PO BID #60 tab-cap 07/09/18 08/14/18 lisdexamfetamine 50 mg capsule 50 mg PO QAM #30 cap MDD 50 mg 07/09/18 08/14/18 lorazepam 2 mg tablet 2 mg PO TID #90 tab-cap 07/09/18 08/14/18 metronidazole 500 mg tablet 500 mg PO BID #14 tab 07/09/18 08/14/18 ibuprofen 800 mg tablet 800 mg PO QID PRN #60 tab 07/30/18 08/14/18 dicyclomine 20 mg PO TID #10 tab 09/17/18 Previous Rx's Medication Instructions Recorded propranolol 120 mg PO BID #180 tab-cap 10/17/17 sertraline 100 mg PO DAILY #90 tab-cap 10/17/17 medroxyprogesterone [Depo-Provera] 150 mg IM Q 12 WEEKS #1 vial 11/14/17 baclofen 10 mg PO TID #30 tab-cap 03/06/18 epinephrine [EpiPen 2-Presley] 0.3 mg IJ PRN PRN #2 auto.injct 04/07/18 topiramate 1 tab PO BID #180 tab 04/10/18 clonazepam 2 mg tablet 2 mg PO BID #60 tab-cap 07/09/18 lisdexamfetamine 50 mg capsule 50 mg PO QAM #30 cap MDD 50 mg 07/09/18 lorazepam 2 mg tablet 2 mg PO TID #90 tab-cap 07/09/18 metronidazole 500 mg tablet 500 mg PO BID #14 tab 07/09/18 ibuprofen 800 mg tablet 800 mg PO QID PRN #60 tab 07/30/18 dicyclomine 20 mg PO TID #10 tab 09/17/18 Allergies Allergy/AdvReac Type Severity Reaction Status Date / Time adhesive Allergy RASH Unverified 08/14/18 10:09 latex Allergy RASH Unverified 08/14/18 10:09 General Stated Complaint: Abd Prob KATHE: 4 Review of Systems Review of Systems All systems reviewed & are unremarkable except as noted in HPI and below PFSH Social History number of children: 5 current occupational status: disabled pets and animals: Yes pets and animals: dog(s) frequency: daily Smoking/Tobacco Use Status: Never second hand exposure: No alcohol intake: never substance use type: does not use special kiley needs: No seatbelt use: sometimes Female Reproductive History Menstrual control method: progesterone injection History History 4 Para Hx # Term Pregnancies 4 Multiple births 1 Hx # Pregnancies Ectopic pregnancies AB induced Hx Number of Living Children AB spontaneous Exam Narrative Exam Narrative: 1.Const: Well-nourished, morbidly obese, well-developed, appearing stated age 2.Eyes: PERRL, no conjunctival injection, and symmetrical lids. 3.ENT: Atraumatic external nose and ears. Moist MM. Neck: Symmetric, trachea midline, No thyromegaly. 4.CVS: +S1/S2, No murmurs or gallops. Peripheral pulses 2+ and equal in all ext remities. Brisk capillary refill in all extremities. 5.RESP: Unlabored respiratory effort. Clear to auscultation bilaterally. No wheezes rales or rhonchi 6.GI: Soft, Nondistended, No hepatosplenomegaly. No guarding or rebound. Pain is present in all quadrants of the abdomen. Appears to be very mild on exam. No significant CVA tenderness. No pain at McBurney's point, negative Stock sign. No lesions on the abdomen. 7.MSK: Normocephalic/Atraumatic, Extremities w/o deformity or ttp No cyanosis or clubbing, Normal movement of all extremities 8.Skin: Warm, Dry. No rashes or lesions. 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 Sensation grossly intact, no focal neurologic deficits. 10.Psych: (AAO) x3. Appropriate mood and affect Course Vital Signs Temperature 36.4 C L 09/17/18 00:44 Pulse 78 09/17/18 00:44 Respiratory Rate 18 09/17/18 00:44 Blood Pressure 140/77 09/17/18 00:44 Pulse Oximetry 94 L 09/17/18 00:44 Temperature 36.4 C L 09/17/18 00:44 Temperature Source Skin 09/17/18 00:44 Pulse 78 09/17/18 00:44 Respiratory Rate 18 09/17/18 00:44 Blood Pressure 140/77 09/17/18 00:44 Blood Pressure Position Sitting 09/17/18 00:44 Pulse Oximetry 94 L 09/17/18 00:44 Oxygen Delivery Method Room Air 09/17/18 00:44 Oxygen Flow Rate 0 09/17/18 00:44
[2018-09-17 01:13] LABS: Bacteria Rare HPF (Negative); C & S Indicated? No; Casts Negative LPF (Negative); Crystals Negative HPF (Negative); Epithelial Cells Rare HPF (Negative); Mucus Negative (Negative); WBC 0-2 HPF (0-5)
[2018-09-17] MEDS: Normal Saline 1,000 ML 1000 ML IV (01:14)
[2018-09-17] MEDS: Ondansetron 4 MG/2 ML VIAL IVP (01:15)
[2018-09-17] MEDS: Dicyclomine 10 MG CAP PO (01:16)
[2018-09-17] MEDS: Omnipaque 350 MG/ML 100 ML BTL IJ (01:32)
--- NOTE | 2018-09-17 01:45 | DI.VRAD_ITS ---
EXAM: CT Abdomen and Pelvis With Contrast EXAM DATE/TIME: 09/17/2018 12:55 AM CLINICAL HISTORY: 37 years old, female; Pain; Abdominal pain; Generalized; Prior surgery; Surgery date: 6+ months; Surgery type: gallbladder TECHNIQUE: Axial computed tomography images of the abdomen and pelvis with intravenous contrast. All CT scans at this facility use at least one of these dose optimization techniques: automated exposure control; mA and/or kV adjustment per patient size (includes targeted exams where dose is matched to clinical indication); or iterative reconstruction. Coronal and sagittal reformatted images were created and reviewed. CONTRAST: 100 ml of [id number] administered intravenously. COMPARISON: CT renal colic wo 06/07/2018 8:29 PM FINDINGS: Lower thorax: No acute findings. ABDOMEN: Liver: Normal. No mass. Gallbladder and bile ducts: Prior cholecystectomy. No ductal dilation. Pancreas: Normal. No ductal dilation. Spleen: Normal. No splenomegaly. Adrenals: Normal. No mass. Kidneys and ureters: Normal. No hydronephrosis. Stomach and bowel: Fluid/liquid stool in the colon. Nonspecific fluid-filled small bowel loops with questionable minimal thickening No obstruction. Appendix: No evidence of appendicitis. PELVIS: Bladder: Partially decompressed Reproductive: Unremarkable as visualized. ABDOMEN and PELVIS: Intraperitoneal space: Normal. No free air. No significant fluid collection. Bones/joints: No acute fracture. No dislocation. Mild degenerative changes in the spine Soft tissues: Tiny fat-containing periumbilical hernia Vasculature: Normal. No abdominal aortic aneurysm. Lymph nodes: Normal. No enlarged lymph nodes. IMPRESSION: Nonspecific bowel gas pattern which may represent mild enteritis/diarrheal disease. Correlate clinically Dictated and Authenticated by: Faheem Mccarthy MD. Ordering:KAMINI Medina MD
[2018-09-17 01:57] LABS: Abs Immature Grans 0.05 k/cumm (0.0-0.09); Absolute Basophil Count 0.03 k/cumm (0.0-0.2); Absolute Eosinophil Count 0.17 k/cumm (0.0-0.7); Absolute Lymphocyte Count 2.05 k/cumm (1.2-3.4); Absolute Monocyte Count 0.78 k/cumm (0.11-0.7); Absolute Neutrophil Count 7.13 k/cumm (1.2-6.7); Basophils % 0.3; Eosinophils % 1.7; HCT 41.5 % (36.0-46.0); HGB 13.7 g/dL (12.0-15.5); Immature Grans % 0.5; Lymphocytes % 20.1; Mean Corpuscular Hemoglobin 30.2 pg (27.0-33.0); Mean Corpuscular Volume 91.6 fL (80-95); Mean Platelet Volume 9.8 fL (8.0-11.0); Monocytes % 7.6; Neutrophils % 69.8; Platelet Count 281 x1000/uL (130-400); RBC 4.53 m/cumm (4.00-5.20); RBC Distribution Width 13.4 % (11.7-14.6); White Blood Cell Count 10.21 k/cumm (4.4-10.8)
[2018-09-17 02:14] LABS: ALT 63 U/L (12-78); AST 57 U/L (15-37); Albumin 3.3 g/dL (3.4-5.0); Alkaline Phosphatase 113 U/L (46-116); BUN 25 mg/dL (7-18); Bilirubin, Total 0.5 mg/dL (0.2-1.0); Calcium 8.6 mg/dL (8.5-10.1); Chloride 100 mmol/L (98-107); Estimated GFR 55.89 (mL/min/1.73m2); Glucose 96 mg/dL (70-100); Lipase 401 U/L (73-393); Potassium 3.5 mmol/L (3.5-5.1); Sodium 135 mmol/L (136-145); Total Protein 7.1 g/dL (6.4-8.2)
[2018-09-17 02:45] VITALS: BP 136/89; PULSE 70; RESP 18; O2SAT 100
== END 2018-09-17 02:58 | disposition home or self-care (01) ==
LOC: ER 02:50
PROVIDERS: Emergency Provider Student in an Organized Health Care Education/Training Program; PCP Family Medicine
DX: K85.90 Acute pancreatitis without necrosis or infection, unspecified (principal); K52.9 Noninfective gastroenteritis and colitis, unspecified; R11.0 Nausea
CPT/HCPCS: 36415; 80053; 81025; 83690; 96361; 96374; 99285; 74177; 81003; 81015; 85025; J2405; J3490

== ENCOUNTER 2018-10-01 02:38 | Emergency (ER) | payer MEDICARE, MEDICAID, SELFPAY ==
[2018-10-01 02:47] VITALS: BP 104/60; PULSE 63; RESP 16; TEMP 37.3; O2SAT 100
--- NOTE | 2018-10-01 02:51 | ED.GENADUL_ITS ---
Discharge Plan Disposition Patient Disposition: HOME Condition: Stable Discharge Details Chief Complaint: Chest Pain Clinical Impression: Chest pain Reason For Visit: CAITLIN Primary Care Provider: Yamil Hernandez ED Provider: Porter Driver Home Meds and New Rx's Prescriptions: Continued clonazepam [Klonopin] 2 mg tablet 2 mg PO BID Qty: 60 RF: 2 lorazepam 2 mg tablet 2 mg PO TID Qty: 90 RF: 2 Vyvanse 50 mg capsule 50 mg PO QAM MDD 50 mg Qty: 30 RF: 0 propranolol 120 mg capsule,extended release 24 hr 120 mg PO BID Qty: 180 RF: 3 Viberzi 75 mg tablet 75 mg PO BID Qty: 60 RF: 4 hyoscyamine sulfate 0.125 mg tablet,disintegrating 0.125 mg PO QID Qty: 30 RF: 4 PROVENTIL HFA 18 GM HFA.AER.AD 2 puff Inhalation Q6H PRN Qty: 2 RF: 4 sertraline 100 MG tablet 100 mg PO DAILY Qty: 90 RF: 4 medroxyprogesterone [Depo-Provera] 150 MG/1 ML suspension 150 mg IM Q 12 WEEKS Qty: 1 RF: 3 Terbinafine HCl 250 MG tablet 250 mg PO DAILY Qty: 30 RF: 2 baclofen 10 MG tablet 10 mg PO TID Qty: 30 RF: 2 topiramate 200 MG tablet 1 tab PO BID Qty: 180 RF: 4 ibuprofen 800 mg tablet 800 mg PO QID PRN (Reason: pain) Qty: 60 RF: 2 epinephrine [EpiPen 2-Presley] 0.3 MG/0.3 ML auto-injector 0.3 mg IJ PRN PRNQty: 2 RF: 5 Discharge Instructions Additional Instructions: Your blood work and EKG did not show any findings to suggest that you are having a heart attack Follow up with your primary care provider within 1 week. You should discuss with them having a stress test If you have severe worsening of pain, become sweaty with the pain, or have nausea and vomit with the pain return to the emergency department for reevaluation Medical Decision Making 37 yo female with hx of ibs, migraine, bipolar, chronic pain syndrome, adhd, who comes in with right upper chest pain that she states started prior to going to bed around 10pm and continued when she woke up around 1230am. She states it hurts to push on the right upper chest. No diaphoresis, sob, n/v, radiation of pain. She has no leg swelling, calf pain, wells score low and perc negative so do not feel work up for PE indicated. Her heart score is 1 based on obesity. Will send troponin. No tearing back pain and normal vascular exam so doubt dissection at this time. Has clear lungs and no pleuritic pain so doubt ptx and normal lung sliding on bedside u/s so doubt ptx. No fever or cough so doubt pna and do not feel xray indicated. Pain is in right upper chest, no abdominal pain to suggest pancretatitis, cholecystitis or other suricial pathology. I suspect musculoskeletal chest pain but will send troponin to further eval for acs but if negative will have her f/u with pcp to discuss stress testing pt remains stable, lab work shows no acute pathology. Only has pain when I palpate the right upper chest. Given normal lab work, low heart score do not feel further testing indicated. Advised f/u with pcp and return precautions given Lab Data Lab results reviewed: Yes I reviewed the patient's lab results. ECG Data Attestation: I personally reviewed and interpreted this ECG (s) as follows: Prior ECG tracings: available for review Interpretation: sinus rhythm, rate of 58, pr 178m qtc 418, no acute st t wave changes HPI General Mode of arrival: EMS . Date/Time Provider Initiated Documentation: 10/01/18 02:44 . Limitations to Documentation: no limitations . Information obtained by: patient . History of Present Illness 37 year old F presents to the emergency department with the chief complaint of right upper chest pain, described as moderate, with intensity rated at 5. Quality is described as aching, and is localized to the chest. Patient reports no radiation. Patient started experiencing this hour(s) (4) and it has been constant. No relieving factors improve symptom(s), No exacerbating factors reported . Patient notes no other symptoms.. Patient did receive the following treatments prior to arrival, NSAID Related Data Home Medications Medication Instructions Recorded Confirmed sertraline 100 mg PO DAILY #90 tab-cap 10/17/17 10/01/18 medroxyprogesterone [Depo-Provera] 150 mg IM Q 12 WEEKS #1 vial 11/14/17 10/01/18 baclofen 10 mg PO TID #30 tab-cap 03/06/18 10/01/18 epinephrine [EpiPen 2-Presley] 0.3 mg IJ PRN PRN #2 auto.injct 04/07/18 10/01/18 topiramate 1 tab PO BID #180 tab 04/10/18 10/01/18 clonazepam 2 mg tablet 2 mg PO BID #60 tab-cap 07/09/18 10/01/18 lisdexamfetamine 50 mg capsule 50 mg PO QAM #30 cap MDD 50 mg 07/09/18 10/01/18 lorazepam 2 mg tablet 2 mg PO TID #90 tab-cap 07/09/18 10/01/18 ibuprofen 800 mg tablet 800 mg PO QID PRN #60 tab 07/30/18 10/01/18 eluxadoline 75 mg tablet 75 mg PO BID #60 tab 09/22/18 10/01/18 hyoscyamine 0.125 mg 0.125 mg PO QID #30 tab 09/22/18 10/01/18 disintegrating tablet propranolol ER 120 mg capsule,24 120 mg PO BID #180 tab-cap 09/22/18 10/01/18 hr,extended release Previous Rx's Medication Instructions Recorded sertraline 100 mg PO DAILY #90 tab-cap 10/17/17 medroxyprogesterone [Depo-Provera] 150 mg IM Q 12 WEEKS #1 vial 11/14/17 baclofen 10 mg PO TID #30 tab-cap 03/06/18 epinephrine [EpiPen 2-Presley] 0.3 mg IJ PRN PRN #2 auto.injct 04/07/18 topiramate 1 tab PO BID #180 tab 04/10/18 clonazepam 2 mg tablet 2 mg PO BID #60 tab-cap 07/09/18 lisdexamfetamine 50 mg capsule 50 mg PO QAM #30 cap MDD 50 mg 07/09/18 lorazepam 2 mg tablet 2 mg PO TID #90 tab-cap 07/09/18 ibuprofen 800 mg tablet 800 mg PO QID PRN #60 tab 07/30/18 eluxadoline 75 mg tablet 75 mg PO BID #60 tab 09/22/18 hyoscyamine 0.125 mg 0.125 mg PO QID #30 tab 09/22/18 disintegrating tablet propranolol ER 120 mg capsule,24 120 mg PO BID #180 tab-cap 09/22/18 hr,extended release Allergies Allergy/AdvReac Type Severity Reaction Status Date / Time adhesive Allergy RASH Unverified 10/01/18 02:53 latex Allergy RASH Unverified 10/01/18 02:53 General KATHE: 4 Review of Systems Review of Systems All systems reviewed & are unremarkable except as noted in HPI and below Constitutional Denies chills, Denies fever(s) and Denies weakness Eyes Denies loss of vision ENT Denies change in voice Cardiovascular Denies dyspnea Respiratory Denies cough and Denies dyspnea Gastrointestinal Denies abdominal pain, Denies nausea and Denies vomiting Musculoskeletal Denies joint swelling Integumentary/Breasts Denies rash Neurologic Denies loss of vision and Denies weakness Psychiatric Denies depression Endocrine Denies cold intolerance and Denies heat intolerance PFSH Medical History Depression Migraine Morbid obesity gallstones Surgical History Ligation of fallopian tube Social History number of children: 5 current occupational status: disabled pets and animals: Yes pets and animals: dog(s) frequency: daily Smoking/Tobacco Use Status: Never second hand exposure: No alcohol intake: never substance use type: does not use special kiley needs: No seatbelt use: sometimes Female Reproductive History Menstrual control method: progesterone injection History History 4 Para Hx # Term Pregnancies 4 Multiple births 1 Hx # Pregnancies Ectopic pregnancies AB induced Hx Number of Living Children AB spontaneous Exam Const General: no acute distress Orientation: alert HENMT Head: normal to inspection Ears: external ears normal General nose exam: external nose normal Mouth: moist mucous membranes Eyes General: appearance normal, both eyes and all related structures Neck Neck: normal visual inspection Resp Effort & Inspection: normal respiratory effort and able to speak in complete sentences Cardio Rate: regular rate Skin General skin exam: no rashes or lesions noted Neuro General: alert and oriented x3 Extrem General: normal to inspection Psych Mental Status: mental status grossly normal
[2018-10-01 03:05] LABS: Abs Immature Grans 0.03 k/cumm (0.0-0.09); Absolute Basophil Count 0.05 k/cumm (0.0-0.2); Absolute Eosinophil Count 0.29 k/cumm (0.0-0.7); Absolute Lymphocyte Count 3.01 k/cumm (1.2-3.4); Absolute Neutrophil Count 5.58 k/cumm (1.2-6.7); Basophils % 0.5; Eosinophils % 2.9; HCT 39.2 % (36.0-46.0); HGB 12.9 g/dL (12.0-15.5); Immature Grans % 0.3; Lymphocytes % 30.5; Mean Corp. HGB Concentration 32.9 g/dL (32.0-36.0); Mean Corpuscular Hemoglobin 30.4 pg (27.0-33.0); Mean Corpuscular Volume 92.5 fL (80-95); Mean Platelet Volume 10.1 fL (8.0-11.0); Monocytes % 9.1; Neutrophils % 56.7; Platelet Count 285 x1000/uL (130-400); RBC 4.24 m/cumm (4.00-5.20); RBC Distribution Width 13.3 % (11.7-14.6); White Blood Cell Count 9.86 k/cumm (4.4-10.8)
[2018-10-01 03:28] LABS: ALT 60 U/L (12-78); AST 26 U/L (15-37); Albumin 3.2 g/dL (3.4-5.0); Alkaline Phosphatase 111 U/L (46-116); Anion Gap 9.3 mmol/L (3-11); BUN 20 mg/dL (7-18); Bilirubin, Total 0.2 mg/dL (0.2-1.0); CO2 21.7 mmol/L (21.0-32.0); CREATININE 1.14 mg/dL (0.55-1.02); Calcium 8.4 mg/dL (8.5-10.1); Chloride 110 mmol/L (98-107); Estimated GFR 53.63 (mL/min/1.73m2); Glucose 100 mg/dL (70-100); Magnesium 1.7 mg/dL (1.8-2.4); Potassium 3.5 mmol/L (3.5-5.1); Sodium 141 mmol/L (136-145); Total Protein 6.9 g/dL (6.4-8.2); Troponin I 0.02 ng/mL (0.00-0.06)
--- NOTE | 2018-10-01 09:03 | PDOC.ERCMPRO ---
Care Management Progress Note 10/01-Dr. Driver requested assistance with a PCP (Davdi) f/u within two weeks for chest pain. Referral faxed to [facility] this .
--- NOTE | 2018-10-01 09:04 | CMPROGNOTE_ITS ---
Care Management Progress Note 10/01-Dr. Driver requested assistance with a PCP (David) f/u within two weeks for chest pain. Referral faxed to [facility] this .
== END 2018-10-01 03:42 | disposition home or self-care (01) ==
LOC: ER 03:46
PROVIDERS: Emergency Provider Emergency Medicine; PCP Family Medicine
DX: R07.9 Chest pain, unspecified (principal)
CPT/HCPCS: 36415; 80053; 81025; 93005; 99284; 83735; 84484; 85025; 93010

== ENCOUNTER 2018-10-08 14:46 | Outpatient (REF) | payer MEDICARE, MEDICAID, SELFPAY ==
[2018-10-12 14:50] LABS: Chlamydia Result Negative; GC Result Negative; Specimen Description CERVIX
== END 2018-10-08 15:06 ==
LOC: LBN 14:46
PROVIDERS: PCP Family Medicine; Visit Provider Obstetrics & Gynecology
DX: R10.2 Pelvic and perineal pain (principal); N89.8 Other specified noninflammatory disorders of vagina
CPT/HCPCS: 87491; 87591; 87480; 87510; 87660

== ENCOUNTER 2018-11-19 11:43 | Emergency (ER) | payer MEDICARE, MEDICAID, SELFPAY ==
[2018-11-19 11:59] VITALS: BP 161/86; PULSE 58; RESP 16; TEMP 36.8; O2SAT 99
--- NOTE | 2018-11-19 12:47 | DI.RAD_ITS ---
SYMPTOMS/DIAGNOSIS: GENERALIZED BILATERAL KNEE PAIN, LEFT ANKLE PAIN AND LEFT FOOT PAIN S/P FALL LEFT ANKLE: There is no evidence of an acute fracture or dislocation. LEFT KNEE: There is no evidence of an acute fracture or dislocation. LEFT FOOT: There is no evidence of an acute fracture or dislocation. RIGHT KNEE: There is no evidence of an acute fracture or dislocation.
[2018-11-19] MEDS: Acetaminophen 500 MG TAB 1000 MG PO (13:16)
[2018-11-19] MEDS: Ibuprofen 800 MG TAB PO (13:16)
--- NOTE | 2018-11-19 14:43 | ED.GENADUL_ITS ---
Discharge Plan Disposition Patient Disposition: HOME Condition: Good Discharge Details Chief Complaint: Orthopedic Clinical Impression: Left knee sprain Primary Care Provider: Yamil Hernandez ED Provider: Adam Jha Home Meds and New Rx's Prescriptions: No Action omeprazole 40 mg capsule,delayed release(DR/EC) 40 mg PO BID Qty: 180 RF: 4 rizatriptan 10 mg tablet See Rx Instructions PO .COMPLEX Qty: 9 RF: 4 sertraline 100 mg tablet 100 mg PO DAILY Qty: 90 RF: 4 medroxyprogesterone [Depo-Provera] 150 mg/mL suspension 150 mg IM Q 12 WEEKS Qty: 1 RF: 3 propranolol 120 mg capsule,extended release 24 hr 120 mg PO BID Qty: 180 RF: 3 Viberzi 75 mg tablet 75 mg PO BID Qty: 60 RF: 4 hyoscyamine sulfate 0.125 mg tablet,disintegrating 0.125 mg PO QID Qty: 30 RF: 4 lamotrigine 25 mg tablet 25 mg PO DAILY Qty: 30 RF: 1 ibuprofen 800 mg tablet 800 mg PO QID PRN (Reason: pain) Qty: 60 RF: 2 PROVENTIL HFA 18 GM HFA.AER.AD 2 puff Inhalation Q6H PRN Qty: 2 RF: 4 Terbinafine HCl 250 MG tablet 250 mg PO DAILY Qty: 30 RF: 2 baclofen 10 MG tablet 10 mg PO TID Qty: 30 RF: 2 topiramate 200 MG tablet 1 tab PO BID Qty: 180 RF: 4 clonazepam [Klonopin] 2 mg tablet 2 mg PO BID Qty: 60 RF: 2 lorazepam 2 mg tablet 2 mg PO TID Qty: 90 RF: 2 Vyvanse 50 mg capsule 50 mg PO QAM MDD 50 mg Qty: 30 RF: 0 epinephrine [EpiPen 2-Presley] 0.3 MG/0.3 ML auto-injector 0.3 mg IJ PRN PRNQty: 2 RF: 5 Discharge Instructions Instructions: Knee Sprain (ED) Additional Instructions: Please take Tylenol and Motrin as needed for pain. Please use ice on your knee as often as possible. If you notice any worsening of your symptoms, or any new symptoms such as vomiting, diarrhea, fever, chills, shortness of breath, chest pain, numbness, weakness, or fainting , please return immediately to the emergency department for reevaluation. Please follow up with your primary care provider as soon as possible for reassessment and reevaluation. As always, it was a pleasure participating in your medical care today. Referrals: Yamil Hernandez MD [Primary Care Provider] - Discharge Data Discharge Date/Time-TO BE ENTERED AT DEPARTURE: 11/19/18 15:06 Medical Decision Making This is a pleasant 38-year-old female with a past medical history of morbid obesity, bipolar disorder, depression, chronic back pain, PTSD, who presents today after a fall. Friends told her that her lips looked a little blue, the patient became concerned with this, immediately turned around while walking up the steps and unfortunately tripped on 1 of the steps. She denies any syncope, near syncope, or lightheadedness. She did not hit her head or lose consciousness. She fell down for 5 steps, and did not hit her head. She did hit her left and right knee as well as her left ankle and foot. She was able to walk around ambulate well without difficulty. Physical exam demonstrates no focal abnormalities from a musculoskeletal or neurologic perspective. No significant abnormalities detected. No evidence of significant fracture or other concerning physical exam findings. Patient is insistent that her joints do need to be x-rayed. Subjective tenderness is present on exam on the left ankle and foot. X-rays were ordered for left and right knee as well as left ankle and left foot, no evidence of acute fracture deformity or other abnormality. With benign appearing exam, no significant joint laxity, I do feel that the patient can be safely discharged home. Recommend Tylenol, Motrin, crutches as needed, and Musa wrap. We discussed red flags for which to return, the importance of ice, and the importance of close follow-up with her primary care provider. I have extensively reviewed the treatment plan and discharge instructions with the patient and their family. I have addressed all patient concerns at this time. The patient and family was made aware of what symptoms to monitor for that would warrant a return to the emergency department. Discussed the plan with the patient and family, they demonstrate verbal understanding and agreement with our assessment and plan at this time. HPI General Date/Time Provider Initiated Documentation: 11/19/18 12:27 . HPI Narrative: This is a 38-year-old female with a past medical history of morbid obesity, depression, chronic pain syndrome, chronic back pain, presents today for evaluation after a fall. Patient states that she was just at her primary care provider's office, the visit went well, when she went home her friend thought her lips looked a little blue, and as her friend said this the patient got worried, turned around to head down the stairs, slipped on 1 of the steps, and fell roughly 4 steps down on her knee and foot. Patient did not hit her head, she had no loss of consciousness, the only parts of her body that she hit where her left knee, her right knee, and her left foot. Patient then decided to come to the ER for further evaluation. She was able to ambulate well without any difficulty. He did not take any NSAIDs. Aside for walking, and no other aggravating factors. No relieving factors. Patient describes the pain as mild. She denies any pain in her pelvis, chest, abdomen, back, neck or head. She did not strike her head or lose consciousness. She is not on any blood thinners. No other modifying factors. She denies any shortness of breath, cough, fever, chills, or chest pain. She denies any numbness tingling or weakness. Related Data Home Medications Medication Instructions Recorded Confirmed baclofen 10 mg PO TID #30 tab-cap 03/06/18 11/19/18 epinephrine [EpiPen 2-Presley] 0.3 mg IJ PRN PRN #2 auto.injct 04/07/18 11/19/18 topiramate 1 tab PO BID #180 tab 04/10/18 11/19/18 eluxadoline 75 mg tablet 75 mg PO BID #60 tab 09/22/18 11/19/18 hyoscyamine 0.125 mg 0.125 mg PO QID #30 tab 09/22/18 11/19/18 disintegrating tablet propranolol ER 120 mg capsule,24 120 mg PO BID #180 tab-cap 09/22/18 11/19/18 hr,extended release sertraline 100 mg tablet 100 mg PO DAILY #90 tab-cap 10/08/18 11/19/18 clonazepam 2 mg tablet 2 mg PO BID #60 tab-cap 10/16/18 11/19/18 lorazepam 2 mg tablet 2 mg PO TID #90 tab-cap 10/16/18 11/19/18 medroxyprogesterone 150 mg/mL 150 mg IM Q 12 WEEKS #1 vial 10/23/18 11/19/18 intramuscular suspension omeprazole 40 mg capsule,delayed 40 mg PO BID #180 cap 11/05/18 11/19/18 release rizatriptan 10 mg tablet See Rx Instructions PO .COMPLEX #9 11/05/18 11/19/18 tab lisdexamfetamine 50 mg capsule 50 mg PO QAM #30 cap MDD 50 mg 11/16/18 11/19/18 ibuprofen 800 mg tablet 800 mg PO QID PRN #60 tab 11/19/18 11/19/18 lamotrigine 25 mg tablet 25 mg PO DAILY #30 tab 11/19/18 11/19/18 Previous Rx's Medication Instructions Recorded baclofen 10 mg PO TID #30 tab-cap 03/06/18 epinephrine [EpiPen 2-Presley] 0.3 mg IJ PRN PRN #2 auto.injct 04/07/18 topiramate 1 tab PO BID #180 tab 04/10/18 eluxadoline 75 mg tablet 75 mg PO BID #60 tab 09/22/18 hyoscyamine 0.125 mg 0.125 mg PO QID #30 tab 09/22/18 disintegrating tablet propranolol ER 120 mg capsule,24 120 mg PO BID #180 tab-cap 09/22/18 hr,extended release sertraline 100 mg tablet 100 mg PO DAILY #90 tab-cap 10/08/18 clonazepam 2 mg tablet 2 mg PO BID #60 tab-cap 10/16/18 lorazepam 2 mg tablet 2 mg PO TID #90 tab-cap 10/16/18 medroxyprogesterone 150 mg/mL 150 mg IM Q 12 WEEKS #1 vial 10/23/18 intramuscular suspension omeprazole 40 mg capsule,delayed 40 mg PO BID #180 cap 11/05/18 release rizatriptan 10 mg tablet See Rx Instructions PO .COMPLEX #9 11/05/18 tab lisdexamfetamine 50 mg capsule 50 mg PO QAM #30 cap MDD 50 mg 11/16/18 ibuprofen 800 mg tablet 800 mg PO QID PRN #60 tab 11/19/18 lamotrigine 25 mg tablet 25 mg PO DAILY #30 tab 11/19/18 Allergies Allergy/AdvReac Type Severity Reaction Status Date / Time adhesive Allergy RASH Unverified 11/19/18 12:04 latex Allergy RASH Unverified 11/19/18 12:04 General Stated Complaint: Orthopedic KATHE: 4 Review of Systems Review of Systems All systems reviewed & are unremarkable except as noted in HPI and below PFSH Medical History IBS (irritable bowel syndrome) (Chronic) Pain, dental (Acute 06/19/17) Migraine (Chronic 07/07/13) Morbid obesity (Chronic 12/07/12) Lumbago (Chronic) Generalized abdominal pain (Chronic 08/29/15) Depressed bipolar I disorder (Chronic) Chronic pain syndrome (Chronic) Chronic pain of right knee (Chronic 11/16/15) Carpal tunnel syndrome (Chronic) Attention deficit hyperactivity disorder (ADHD), 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) Anxiety (Chronic) gallstones Surgical History Ligation of fallopian tube Social History Smoking/Tobacco Use Status: Never Second Hand Exposure: No Alcohol Intake: never Drug use: Never Substance use type: does not use Number of Children: 5 Pets and animals: Yes Pets and animals: dog(s) Frequency: daily Special kiley needs: No Seatbelt use: sometimes Do you feel safe in your relationship?: Yes Female Reproductive History Menstrual control method: progesterone injection History History 4 Para Hx # Term Pregnancies 4 Multiple births 1 Hx # Pregnancies Ectopic pregnancies AB induced Hx Number of Living Children AB spontaneous Exam Narrative Exam Narrative: 1.Const: Well-nourished, morbidly obese, well-developed, appearing stated age 2.Eyes: PERRL, no conjunctival injection, and symmetrical lids. 3.ENT: Atraumatic external nose and ears. Moist MM. Neck: Symmetric, trachea midline, No thyromegaly. No evidence of perioral or oral cyanosis. There is no evidence of raccoon eyes, paz sign, CSF rhinorrhea, mastoid tenderness, wood scrap handler nial crepitus, hemotympanum, exophthalmos, or hyphema. Patient demonstrates intact dentition with no signs of tooth avulsion or fracture, no signs of jaw deformity, no evidence of a LeFort's fracture, with an intact palate, nose and orbital region. There is no evidence of a nasal septal hematoma. No proptosis. Jaw closes symmetrically. Airway is clear. 4.CVS: +S1/S2, No murmurs or gallops. Peripheral pulses 2+ and equal in all extremities. Brisk capillary refill in all extremities. 5.RESP: Unlabored respiratory effort. Clear to auscultation bilaterally. No wheezes rales or rhonchi 6.GI: Soft, Nontender/Nondistended, No hepatosplenomegaly. No guarding or rebound. 7.MSK: Normocephalic/Atraumatic, Extremities w/o deformity or ttp No cyanosis or clubbing, Normal movement of all extremities, bilateral knees: The knees are stable to varus, valgus, and anterior drawer stress. No deformity. Patellar grind test is negative. Patient is able to walk without difficulty. No edema or warmth to the joint. No ttp to the patella, tibial plateau, or fibular head. Bilateral ankles are stable to varus and valgus stressing, she demonstrates excellent) dorsiflexion strength. No focal tenderness. No deformity. Minimal tenderness is generalized throughout the lateral aspect of her foot. No evidence of swelling or deformity. Sensation intact throughout, dorsalis pedis and posterior tibial pulses +2 bilaterally. Dirk is stable. No abdominal tenderness, no tenderness in the femur or the tibia or fibula bilaterally. Normal upper extremity exam. 8.Skin: Warm, Dry. No rashes or lesions. 9.Neuro: archivist economic history II-XII grossly intact. Sensation grossly intact, no focal neurologic deficits. 10.Psych: (AAO) x3. Appropriate mood and affect Course Vital Signs Temperature 36.8 C 11/19/18 11:59 Pulse 58 L 11/19/18 11:59 Respiratory Rate 16 11/19/18 11:59 Blood Pressure 161/86 H 11/19/18 11:59 Pulse Oximetry 99 11/19/18 11:59 Temperature 36.8 C 11/19/18 11:59 Temperature Source Skin 11/19/18 11:59 Pulse 58 L 11/19/18 11:59 Respiratory Rate 16 11/19/18 11:59 Respiratory Effort Non-Labored 11/19/18 11:59 Blood Pressure 161/86 H 11/19/18 11:59 Blood Pressure Position Sitting 11/19/18 11:59 Pulse Oximetry 99 11/19/18 11:59 Oxygen Delivery Method Room Air 11/19/18 11:59 Oxygen Flow Rate 0 11/19/18 11:59 Pain Level 9 11/19/18 11:59
== END 2018-11-19 15:06 | disposition home or self-care (01) ==
PROVIDERS: Emergency Provider Student in an Organized Health Care Education/Training Program; PCP Family Medicine
DX: S83.92XA Sprain of unspecified site of left knee, initial encounter (principal); M25.561 Pain in right knee; M25.562 Pain in left knee; M79.672 Pain in left foot; W10.8XXA Fall (on) (from) other stairs and steps, initial encounter
CPT/HCPCS: 73562; 99284; 73610; 73630; E0114

== ENCOUNTER → 2018-11-23 11:24 | Outpatient (BNVA) | payer MEDICARE, MEDICAID, SELFPAY | PROVIDERS: PCP Family Medicine; Referring Provider Family Medicine; Visit Provider Surgery | DX: K58.0 Irritable bowel syndrome with diarrhea (principal); Z90.49 Acquired absence of other specified parts of digestive tract | CPT/HCPCS: 99212; 99213 ==

== ENCOUNTER 2018-12-25 21:57 | Emergency (ER) | payer MEDICARE, MEDICAID, SELFPAY ==
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
[2018-12-25 21:58] VITALS: RESP 16
[2018-12-25 22:04] VITALS: BP 145/98; PULSE 69; RESP 16; TEMP 36.8; O2SAT 97
[2018-12-25] MEDS: Acetaminophen 500 MG TAB 1000 MG PO (22:21)
--- NOTE | 2018-12-25 22:23 | NUR.NOTE ---
Nursing Note: did a co reading on pt was .1
[2018-12-25 22:41] VITALS: BP 141/97; PULSE 68; RESP 16; O2SAT 97
== END 2018-12-25 22:41 | disposition home or self-care (01) ==
LOC: ER 22:43
PROVIDERS: Emergency Provider Emergency Medicine; PCP Family Medicine
DX: R51 Headache (principal); R11.0 Nausea
CPT/HCPCS: 99282

== ENCOUNTER → 2019-01-11 13:00 | Outpatient (BNVA) | payer MEDICARE, MEDICAID, SELFPAY | PROVIDERS: PCP Family Medicine; Referring Provider Family Medicine; Visit Provider Surgery | DX: L72.9 Follicular cyst of the skin and subcutaneous tissue, unspecified (principal) | CPT/HCPCS: 99212 ==

== ENCOUNTER 2019-01-19 15:37 | Outpatient (REF) | payer MEDICARE, MEDICAID, SELFPAY ==
--- NOTE | 2019-01-19 15:00 | PAPFT_PTH ---
PATIENT: Kia Florence LOC: [facility] U#:[id number] AGE/SX: 38/F ROOM: RE01/19/[address]: JEAN Young : 1980 BED: DIS: 01/19/2019 SPEC #: [id number] RECD: 01/19/19 17:56 STATUS: GANESH REJerrica #: [id number] VIJAY: 01/19/19 15:[address]: Suri Schmitt DEPT: [facility] Cytology RECD BY: Ruth Saavedra ENTERED: 01/19/19 17:57 SP TYPE: PAPFT CLAUDIO DR: Yamil Hernandez MD Tissues: 1 - CX/ENDOCX FOR PAP SMEARS Procedures: PAP THIN PREP/[facility] Screening HPV DNA PROBE Comments: [id number]
[2019-01-21 13:53] LABS: Chlamydia Result Negative; GC Result Negative; Specimen Description CERVIX
== END 2019-01-19 15:57 ==
LOC: LBN 15:37
PROVIDERS: PCP Family Medicine; Visit Provider Nurse Practitioner Family
DX: Z11.3 Encounter for screening for infections with a predominantly sexual mode of transmission (principal); R35.0 Frequency of micturition; Z12.4 Encounter for screening for malignant neoplasm of cervix; Z11.51 Encounter for screening for human papillomavirus (HPV)
CPT/HCPCS: 87491; 87591; 88142; 87086; 87624

== ENCOUNTER → 2019-02-01 13:52 | Outpatient (BNVA) | payer MEDICARE, MEDICAID, SELFPAY | PROVIDERS: PCP Family Medicine; Referring Provider Family Medicine; Visit Provider Surgery | DX: M79.9 Soft tissue disorder, unspecified (principal); L72.3 Sebaceous cyst | CPT/HCPCS: 11401; 99212 ==

== ENCOUNTER 2019-02-01 15:27 | Outpatient (REF) | payer MEDICARE, MEDICAID, SELFPAY ==
--- NOTE | 2019-02-01 14:15 | SOFT_PTH ---
PATIENT: Kia Florence LOC: [facility] U#:[id number] AGE/SX: 38/F ROOM: RE02/01/[address]: Yany Toure : 1980 BED: DIS: 02/01/2019 SPEC #: [id number] RECD: 02/01/19 17:37 STATUS: GANESH REQ #: [id number] VIJAY: 02/01/19 14:[address]: Yany Toure DEPT: Surgical Specimen RECD BY: Ruth Saavedra ENTERED: 02/01/19 17:38 SP TYPE: SOFT OTHR DR: Yamil Hernandez MD Tissues: 1 - SOFT TISSUE-CYST(NOT LIPOMA) 2 - SOFT TISSUE-CYST(NOT LIPOMA) Procedures: GROSS AND MICRO LEVEL 4 Comments: [id number]
== END 2019-02-01 15:47 ==
LOC: LBN 15:27
PROVIDERS: PCP Family Medicine; Visit Provider Surgery
DX: L72.3 Sebaceous cyst (principal)
CPT/HCPCS: 88305; 88304

== ENCOUNTER → 2019-02-11 10:25 | Outpatient (BNVA) | payer MEDICARE, MEDICAID, SELFPAY | PROVIDERS: PCP Family Medicine; Referring Provider Family Medicine; Visit Provider Surgery | DX: Z48.817 Encounter for surgical aftercare following surgery on the skin and subcutaneous tissue (principal); L72.3 Sebaceous cyst ==

== ENCOUNTER 2019-04-16 12:54 | Outpatient (REF) | payer MEDICARE, MEDICAID, SELFPAY | END 2019-04-16 13:14 | LOC: LBN 12:54 | PROVIDERS: PCP Family Medicine; Visit Provider Nurse Practitioner Family | DX: R30.0 Dysuria (principal) | CPT/HCPCS: 87086 ==

== ENCOUNTER 2019-04-19 12:03 | Outpatient (CLI) | payer MEDICARE, MEDICAID, SELFPAY ==
[2019-04-19 13:48] LABS: Calculated LDL 91 mg/dL; Cholesterol 150 mg/dL (50-200); HDL Cholesterol 43 mg/dL (40-60); Triglyceride 83 mg/dL (30-150)
== END 2019-04-19 12:23 ==
PROVIDERS: PCP Family Medicine; Visit Provider Nurse Practitioner
DX: Z13.6 Encounter for screening for cardiovascular disorders (principal); R69 Illness, unspecified
CPT/HCPCS: 36415; 80061; 83721

== ENCOUNTER 2019-05-18 11:17 | Emergency (ER) | payer MEDICARE, MEDICAID, OTHER, SELFPAY ==
[2019-05-18 11:17] VITALS: BP 116/70; PULSE 66; RESP 17; TEMP 36.8; O2SAT 99
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
[2019-05-18] MEDS: Ketorolac 30 MG/ML VIAL IVP (12:12)
[2019-05-18 12:15] LABS: Abs Immature Grans 0.02 k/cumm (0.0-0.09); Absolute Basophil Count 0.04 k/cumm (0.0-0.2); Absolute Eosinophil Count 0.34 k/cumm (0.0-0.7); Absolute Lymphocyte Count 2.52 k/cumm (1.2-3.4); Absolute Monocyte Count 0.58 k/cumm (0.11-0.7); Absolute Neutrophil Count 4.52 k/cumm (1.2-6.7); Basophils % 0.5; Eosinophils % 4.2; HCT 36.9 % (36.0-46.0); HGB 12.1 g/dL (12.0-15.5); Immature Grans % 0.2; Lymphocytes % 31.4; Mean Corp. HGB Concentration 32.8 g/dL (32.0-36.0); Mean Corpuscular Hemoglobin 30.8 pg (27.0-33.0); Mean Corpuscular Volume 93.9 fL (80-95); Mean Platelet Volume 10.5 fL (8.0-11.0); Monocytes % 7.2; Neutrophils % 56.5; Platelet Count 256 x1000/uL (130-400); RBC 3.93 m/cumm (4.00-5.20); RBC Distribution Width 13.6 % (11.7-14.6); White Blood Cell Count 8.02 k/cumm (4.4-10.8)
[2019-05-18 12:40] LABS: ALT 68 U/L (14-59); AST 27 U/L (15-37); Albumin 3.1 g/dL (3.4-5.0); Alkaline Phosphatase 109 U/L (46-116); Anion Gap 10.7 mmol/L (3-11); BUN 17 mg/dL (7-18); Bilirubin, Total 0.3 mg/dL (0.2-1.0); CO2 18.3 mmol/L (21.0-32.0); Calcium 8.1 mg/dL (8.5-10.1); Chloride 114 mmol/L (98-107); Estimated GFR 55.59 (mL/min/1.73m2); Glucose 90 mg/dL (70-100); Lipase 91 U/L (73-393); Potassium 3.6 mmol/L (3.5-5.1); Sodium 143 mmol/L (136-145); Total Protein 6.4 g/dL (6.4-8.2)
[2019-05-18 12:46] LABS: Prothrombin Time 10.2 sec (9.3-11.0)
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
[2019-05-18 16:00] VITALS: BP 116/70; PULSE 66; RESP 17; TEMP 36.8; O2SAT 99
== END 2019-05-18 16:00 | disposition home or self-care (01) ==
PROVIDERS: Emergency Provider Student in an Organized Health Care Education/Training Program; PCP Family Medicine
DX: S23.3XXA Sprain of ligaments of thoracic spine, initial encounter (principal); S63.501A Unspecified sprain of right wrist, initial encounter; M54.5 Low back pain; M25.561 Pain in right knee; M25.572 Pain in left ankle and joints of left foot; M79.661 Pain in right lower leg; V47.6XXA Car passenger injured in collision with fixed or stationary object in traffic accident, initial encounter; R07.89 Other chest pain
CPT/HCPCS: 36415; 73562; 74177; 80053; 83690; 96374; 99285; 70450; 71260; 72125; 73110; 73590; 73610; 85025; 85610; 85730; 99284; J1885

== ENCOUNTER 2019-09-07 11:06 | Outpatient (CLI) | payer MEDICARE, MEDICAID, SELFPAY ==
--- NOTE | 2019-09-07 11:24 | DI.RAD_ITS ---
EXAM: XR FINGER RT INDEX CLINICAL HISTORY: pain. TECHNIQUE: 2D digital imaging was performed. COMPARISON: No previous for comparison. FINDINGS: BONES: No acute fracture is present. No bony destructive lesion is seen. JOINTS: No dislocation present. SOFT TISSUE: Normal. IMPRESSION: No evidence of acute fracture, dislocation, or subluxation.
--- NOTE | 2019-09-07 11:26 | DI.RAD_ITS ---
EXAM: XR WRIST LT COMPLETE CLINICAL HISTORY: pain. TECHNIQUE: 2D digital imaging was performed. COMPARISON: Previous for comparison. FINDINGS: BONES: No acute fracture is present. No bony destructive lesion is seen. JOINTS: The carpal bones are normally aligned. SOFT TISSUE: Normal. IMPRESSION: Unremarkable radiographs of the left wrist.
== END 2019-09-07 11:26 ==
PROVIDERS: PCP Family Medicine; Referring Provider Family Medicine; Visit Provider Orthopaedic Surgery
DX: M25.532 Pain in left wrist (principal); M79.644 Pain in right finger(s); S63.602A Unspecified sprain of left thumb, initial encounter; S63.610A Unspecified sprain of right index finger, initial encounter; W64.XXXA Exposure to other animate mechanical forces, initial encounter; V89.9XXA Person injured in unspecified vehicle accident, initial encounter
CPT/HCPCS: 99201; 99213; 73110; 73140

== ENCOUNTER 2019-12-28 16:54 | Outpatient (REF) | payer MEDICARE, MEDICAID, SELFPAY | END 2019-12-28 17:14 | LOC: LBN 16:54 | PROVIDERS: PCP Family Medicine; Visit Provider Nurse Practitioner Women's Health | DX: R30.0 Dysuria (principal) | CPT/HCPCS: 87086 ==

== ENCOUNTER 2020-03-21 19:51 | Outpatient (REF) | payer MEDICARE, MEDICAID, SELFPAY | END 2020-03-21 20:11 | LOC: LBN 19:51 | PROVIDERS: PCP Family Medicine; Visit Provider Nurse Practitioner Women's Health | DX: N76.0 Acute vaginitis (principal) | CPT/HCPCS: 87480; 87510; 87660 ==

== ENCOUNTER 2020-08-12 11:31 | Outpatient (CLI) | payer MEDICARE, MEDICAID, SELFPAY ==
--- NOTE | 2020-08-12 11:30 | DI.RAD_ITS ---
EXAM: XR FOOT RT COMPLETE CLINICAL HISTORY: injured right foot this AM, walking dog, r/o fx. TECHNIQUE: 2D digital imaging was performed. COMPARISON: CR XR foot LT complete from 11/19/2018 FINDINGS: Three views of the right foot reveal dorsal soft tissue swelling but no distinct fracture lines evide nt. No radiopaque foreign body. Accessory ossicle is noted on the dorsal aspect of the foot off the dorsal aspect of the articulation between the navicular and medial cuneiform. This does not have th e appearance of an acute fracture fragment, being corticated. Incidentally noted is a large inferior calcaneal spur. IMPRESSION: Findings as above but no obvious acute fractures. DATA REPOSITORY: RADIATION DOSE DELIVERED:
--- NOTE | 2020-08-12 12:07 | DI.VRAD_ITS ---
PROCEDURE INFORMATION: Exam: XR Right Foot Complete Exam date and time: 08/12/2020 11:52 AM Age: 39 years old Clinical indication: Other: Fall, right foot pain TECHNIQUE: Imaging protocol: XR Right foot. Views: 3 or more views. COMPARISON: CR XR ANKLE RT COMPLETE 05/18/2019 12:50 PM FINDINGS: Bones/joints: A prominent plantar calcaneal spur. No acute fractures or dislocations. Soft tissues: Soft tissue swelling at the dorsum of the foot. IMPRESSION: 1. No acute fractures or dislocations. 2. Soft tissue swelling of the dorsum of the foot. 3. A prominent plantar calcaneal spur Dictated and Authenticated by: Ld Holguin MD. Ordering:MCKENZIE Dias MD
== END 2020-08-12 11:51 ==
PROVIDERS: PCP Family Medicine; Visit Provider Physician Assistant
DX: M79.671 Pain in right foot (principal); M79.89 Other specified soft tissue disorders; M77.31 Calcaneal spur, right foot
CPT/HCPCS: 73630

== ENCOUNTER 2020-08-23 16:43 | Outpatient (REF) | payer MEDICARE, MEDICAID, SELFPAY ==
[2020-08-25 19:58] LABS: COVID-19 RT-PCR UVMMC Result Negative (Negative)
== END 2020-08-23 17:03 ==
LOC: LBN 16:43
PROVIDERS: PCP Family Medicine; Visit Provider Nurse Practitioner Family
DX: J02.9 Acute pharyngitis, unspecified (principal); Z11.59 Encounter for screening for other viral diseases
CPT/HCPCS: U0003; 87070

== ENCOUNTER 2020-11-02 20:06 | Outpatient (REF) | payer MEDICARE, MEDICAID, SELFPAY ==
[2020-11-06 15:46] LABS: Chlamydia Result Negative (Negative); GC Result Negative (Negative)
== END 2020-11-02 20:07 | disposition home or self-care (01) ==
LOC: LBN 20:06
PROVIDERS: PCP Family Medicine; Visit Provider Nurse Practitioner Family
DX: Z11.3 Encounter for screening for infections with a predominantly sexual mode of transmission (principal)
CPT/HCPCS: 87491; 87591

== ENCOUNTER 2021-01-03 02:25 | Outpatient (CLI) | payer MEDICARE, MEDICAID, SELFPAY ==
--- NOTE | 2021-01-03 11:00 | DI.RAD_ITS ---
Exam(s) XR LUMBAR SPINE COMPLETE EXAM: XR LUMBAR SPINE COMPLETE CLINICAL HISTORY: chronic low back pain,RADICULOPATHY,M54.16. TECHNIQUE: 2D digital imaging was performed. COMPARISON: CR LUMBAR SPINE COMPLETE from 08/08/2014 FINDINGS: There is mild anterior osseous lipping now evident at L4-5 and L5-S1 levels despite relatively preser anna disc height at these levels. In addition, there is now an element of degenerative disc disease a t L2-3 as manifest by anterior osseous lipping which is not evident on the prior study 2013. There a re no fractures nor listhesis. No obvious facet arthropathy. No scoliosis. Sacroiliac joints appea r unremarkable and unchanged. Bone density is normal. No osseous. IMPRESSION: Subtle evidence of degenerative disc disease. DATA REPOSITORY: RADIATION DOSE DELIVERED:
== END 2021-01-03 02:45 ==
PROVIDERS: PCP Family Medicine; Visit Provider Nurse Practitioner Family
DX: M54.16 Radiculopathy, lumbar region (principal); M51.36 Other intervertebral disc degeneration, lumbar region; G89.29 Other chronic pain
CPT/HCPCS: 72110

== ENCOUNTER 2021-06-19 15:44 | Outpatient (REF) | payer MEDICARE, MEDICAID, SELFPAY ==
[2021-06-21 15:25] LABS: Chlamydia Result Negative (Negative); GC Result Negative (Negative)
== END 2021-06-19 15:45 | disposition home or self-care (01) ==
LOC: LBN 15:44
PROVIDERS: PCP Nurse Practitioner Family; Visit Provider Nurse Practitioner Family
DX: R30.0 Dysuria (principal); Z11.3 Encounter for screening for infections with a predominantly sexual mode of transmission; N89.8 Other specified noninflammatory disorders of vagina
CPT/HCPCS: 87077; 87491; 87591; 87086; 87186

== ENCOUNTER 2021-07-14 12:02 | Outpatient (CLI) | payer MEDICARE, MEDICAID, SELFPAY ==
--- NOTE | 2021-07-14 12:00 | DI.RAD_ITS ---
Exam(s) XR ABD FLAT UPRIGHT PA CHEST EXAM: XR ABD FLAT UPRIGHT PA CHEST CLINICAL HISTORY: left flank and suprapubic pain c/o kidney stone TECHNIQUE: COMPARISON: CR CHEST 2 VIEWS PA,LAT from 09/01/2015 FINDINGS: PA view of the chest shows normal cardiac size and clear lungs. No pleural effusion on this frontal film. Three views of the abdomen were obtained. Bowel gas pattern is within normal limits. Vascular clips noted in right upper quadrant consistent with prior cholecystectomy. No definite urinary tract calc ification identified. IMPRESSION: Negative examination of the chest and abdomen. RADIATION DOSE DELIVERED: Total DLP
--- NOTE | 2021-07-14 13:59 | DI.VRAD_ITS ---
PROCEDURE INFORMATION: Exam: XR Complete Acute Abdomen Series Including Chest Exam date and time: 07/14/2021 12:06 PM Age: 40 years old Clinical indication: Other: Lt flank pain and suprapubic pain R/O kidney stones TECHNIQUE: Imaging protocol: XR complete acute abdomen series, including 2 or more views of the abdomen and a single view chest. COMPARISON: CT CHEST/ABD/PEL W 05/18/2019 12:38 PM FINDINGS: Lungs: Normal. No consolidation. Pleural spaces: Normal. No pleural effusions. No pneumothorax. Heart/Mediastinum: Normal. No cardiomegaly. Gastrointestinal tract: Normal. No bowel dilation. Intraperitoneal space: Normal. No free air. Organs: There are clips in the right upper quadrant consistent with cholecystectomy. Bones/joints: Normal. No acute fracture. Soft tissues: Normal. IMPRESSION: No significant abnormality. No kidney stones are seen. Dictated and Authenticated by: Kemar Castillo MD. Ordering:MCKENZIE Dias MD
[2021-07-18 11:52] LABS: HSV Type 1 Ab, IgG Positive (Negative); HSV Type 2 Ab, IgG Positive (Negative)
== END 2021-07-14 12:03 | disposition home or self-care (01) ==
LOC: DI 12:26 → LBN 17:04
PROVIDERS: PCP Nurse Practitioner Family; Visit Provider Physician Assistant
DX: N76.0 Acute vaginitis (principal); R10.2 Pelvic and perineal pain; N94.9 Unspecified condition associated with female genital organs and menstrual cycle; R10.9 Unspecified abdominal pain
CPT/HCPCS: 87491; 87529; 87591; 74022; 86695; 86696; 87480; 87510; 87660

== ENCOUNTER 2021-07-14 12:03 | Outpatient (REF) | payer MEDICARE, MEDICAID, SELFPAY ==
[2021-07-16 15:48] LABS: Chlamydia Result Negative (Negative); GC Result Negative (Negative)
== END 2021-07-14 12:04 ==
LOC: LBN 12:03
PROVIDERS: PCP Nurse Practitioner Family; Visit Provider Physician Assistant
DX: N76.0 Acute vaginitis (principal); R10.2 Pelvic and perineal pain; N94.9 Unspecified condition associated with female genital organs and menstrual cycle; R10.9 Unspecified abdominal pain
CPT/HCPCS: 87491; 87529; 87591; 86695; 86696; 87480; 87510; 87660

== ENCOUNTER 2021-07-27 14:42 | Outpatient (REF) | payer MEDICARE, MEDICAID, SELFPAY ==
[2021-07-27 13:06] LABS: Bilirubin Small (Negative); Blood Negative (Negative); Clarity Sl Cloudy (Clear); Glucose Negative (Negative); Ketones Negative (Negative); Leukocyte Esterase Negative (Negative); Nitrite Negative (Negative); Specific Gravity >= 1.030 (1.005-1.025); Urobilinogen 0.2 EU/dL (Up TO 0.2)
[2021-07-27 13:28] LABS: Bacteria Rare HPF (Negative); C & S Indicated? No; Casts 0-2 Hyaline LPF (Negative); Crystals Negative HPF (Negative); Epithelial Cells Many HPF (Negative); Mucus Heavy (Negative); RBC 0-2 HPF (0-2); WBC 0-2 HPF (0-5)
[2021-07-28 14:32] LABS: COVID-19 RT-PCR UVMMC Result Negative (Negative)
== END 2021-07-27 14:43 | disposition home or self-care (01) ==
LOC: NCHCN 14:42
PROVIDERS: PCP Nurse Practitioner Family; Visit Provider Physician Assistant
DX: Z20.822 Contact with and (suspected) exposure to COVID-19 (principal); N39.0 Urinary tract infection, site not specified
CPT/HCPCS: U0003; U0005; 81003; 81015

== ENCOUNTER 2021-08-02 15:29 | Outpatient (REF) | payer MEDICARE, MEDICAID, SELFPAY ==
[2021-08-02 18:20] LABS: Bilirubin Negative (Negative); Blood Moderate (Negative); Clarity Cloudy (Clear); Glucose Negative (Negative); Ketones Negative (Negative); Leukocyte Esterase Negative (Negative); Nitrite Negative (Negative); Specific Gravity >= 1.030 (1.005-1.025); Urobilinogen 0.2 EU/dL (Up TO 0.2)
[2021-08-02 18:32] LABS: Bacteria Few HPF (Negative); Epithelial Cells Few HPF (Negative)
[2021-08-02 18:33] LABS: C & S Indicated? C&S Done As Ordered; Casts Negative LPF (Negative); Crystals Few Amorphous HPF (Negative); Mucus Trace (Negative)
== END 2021-08-02 15:30 | disposition home or self-care (01) ==
LOC: LBN 15:29
PROVIDERS: PCP Nurse Practitioner Family; Visit Provider Nurse Practitioner Family
DX: R30.0 Dysuria (principal)
CPT/HCPCS: 81003; 81015; 87086

== ENCOUNTER 2021-08-06 03:59 | Outpatient (CLI) | payer MEDICARE, MEDICAID, SELFPAY ==
[2021-08-06 13:56] LABS: ALT 63 U/L (14-59); AST 24 U/L (15-37); Albumin 3.8 g/dL (3.4-5.0); Alkaline Phosphatase 73 U/L (46-116); Anion Gap 14.5 mmol/L (3-11); BUN 19 mg/dL (7-18); Bilirubin, Total 0.5 mg/dL (0.2-1.0); CO2 17.5 mmol/L (21.0-32.0); CREATININE 0.9 mg/dL (0.55-1.02); Calcium 8.9 mg/dL (8.5-10.1); Calculated LDL 104 mg/dL (<100); Chloride 109 mmol/L (98-107); Cholesterol 162 mg/dL (<200); Glucose 78 mg/dL (74-106); HDL Cholesterol 40 mg/dL (40-60); Potassium 3.9 mmol/L (3.5-5.1); Sodium 141 mmol/L (136-145); Total Protein 6.5 g/dL (6.4-8.2); Triglyceride 92 mg/dL (<150)
== END 2021-08-06 04:00 | disposition home or self-care (01) ==
LOC: LBO 03:59
PROVIDERS: PCP Nurse Practitioner Family; Visit Provider Nurse Practitioner Family
DX: R73.01 Impaired fasting glucose (principal); E66.9 Obesity, unspecified; R79.89 Other specified abnormal findings of blood chemistry
CPT/HCPCS: 36415; 80053; 80061; 83036

== ENCOUNTER 2021-08-15 02:07 | Outpatient (CLI) | payer MEDICARE, MEDICAID, SELFPAY ==
--- NOTE | 2021-08-15 08:00 | DI.US_ITS ---
Exam(s) US RENAL EXAM: US RENAL CLINICAL HISTORY: Hematuria, negative UA,R31.9. TECHNIQUE: Dumont scale, color and spectral Doppler were used. COMPARISON: No exams were available for comparison FINDINGS: Renal size in cm: Right: 14.2. Left: 11.6. Echogenicity: Normal. Hydronephrosis: No. Cyst or mass: No. Nephrolithiasis: No. Other findings: None. Bladder:The bladder was not well evaluated due to inadequate preparation. Ureteral jets: Right: Not visualized on this examination. Left: Not visualized on this examination. Prevoid vol:31 cc Postvoid vol:0 cc Renal color flow: Symmetric and within normal limits. IMPRESSION: 1. No evidence of hydronephrosis or nephrolithiasis. 2. Limited evaluation of the urinary bladder due to inadequate preparation. DATA REPOSITORY:
== END 2021-08-15 02:27 ==
PROVIDERS: PCP Nurse Practitioner Family; Visit Provider Nurse Practitioner Family
DX: R31.9 Hematuria, unspecified (principal)
CPT/HCPCS: 76770

== ENCOUNTER 2021-08-15 16:42 | Outpatient (REF) | payer MEDICARE, MEDICAID, SELFPAY ==
[2021-08-17 13:57] LABS: COVID-19 RT-PCR UVMMC Result Negative (Negative)
== END 2021-08-15 16:43 | disposition home or self-care (01) ==
LOC: LBN 16:42
PROVIDERS: PCP Nurse Practitioner Family; Visit Provider Physician Assistant Medical
DX: R09.89 Other specified symptoms and signs involving the circulatory and respiratory systems (principal); Z20.822 Contact with and (suspected) exposure to COVID-19; J02.9 Acute pharyngitis, unspecified
CPT/HCPCS: U0003; U0005; 87070

== ENCOUNTER 2021-11-10 10:12 | Outpatient (REF) | payer MEDICARE, MEDICAID, SELFPAY ==
[2021-11-23 15:38] LABS: Misc Referral (MAYO) See Comments
== END 2021-11-10 10:13 | disposition home or self-care (01) ==
LOC: LBN 10:12
PROVIDERS: PCP Nurse Practitioner Family; Visit Provider Nurse Practitioner Family
DX: Z51.81 Encounter for therapeutic drug level monitoring (principal)
CPT/HCPCS: 80324

== ENCOUNTER 2022-02-18 15:04 | Outpatient (REF) | payer OTHER, MEDICAID, SELFPAY ==
--- NOTE | 2022-02-18 14:45 | PAPFT_PTH ---
PATIENT: Kia Florence LOC: N U#:[id number] AGE/SX: 41/F ROOM: RE02/18/[address]: JEAN Young : 1980 BED: DIS: 02/18/2022 SPEC #: [id number] RECD: 02/18/22 17:58 STATUS: GANESH REQ #: [id number] VIJAY: 02/18/22 14:[address]: Suri Schmitt DEPT: [facility] Cytology RECD BY: Ruth Saavedra ENTERED: 02/18/22 17:58 SP TYPE: PAPFT OT DR: JEAN Alonso Tissues: 1 - CX/ENDOCX FOR PAP SMEARS Procedures: PAP THIN PREP/[facility] Screening HPV DNA PROBE Comments: [id number]
[2022-02-20 15:09] LABS: Chlamydia Result Negative (Negative); GC Result Negative (Negative)
== END 2022-02-18 15:05 | disposition home or self-care (01) ==
LOC: LBN 15:04
PROVIDERS: PCP Nurse Practitioner Family; Visit Provider Nurse Practitioner Family
DX: Z11.51 Encounter for screening for human papillomavirus (HPV) (principal)
CPT/HCPCS: 87491; 87591; 88142; 87086; 87624

== ENCOUNTER 2022-03-01 09:59 | Emergency (ER) | payer OTHER, MEDICAID, SELFPAY ==
[2022-03-01 10:01] VITALS: BP 134/63; PULSE 59; RESP 18; TEMP 36.4; O2SAT 100
[2022-03-01 10:13] VITALS: RESP 16
[2022-03-01 10:32] LABS: Bilirubin Negative (Negative); Blood Negative (Negative); Clarity Clear (Clear); Glucose Negative (Negative); Ketones Negative (Negative); Leukocyte Esterase Negative (Negative); Nitrite Negative (Negative); Specific Gravity 1.025 (1.005-1.025); Urobilinogen 0.2 EU/dL (Up TO 0.2)
[2022-03-01 11:13] LABS: Abs Immature Grans 0.04 10^3/uL (0.0-0.06); Absolute Basophil Count 0.06 10^3/uL (0.0-0.2); Absolute Eosinophil Count 0.65 10^3/uL (0.0-0.7); Absolute Lymphocyte Count 2.23 10^3/uL (1.2-3.4); Absolute Monocyte Count 0.62 10^3/uL (0.1-0.8); Absolute Neutrophil Count 5.74 10^3/uL (1.2-6.7); Basophils % 0.6; HCT 39.2 % (36.0-46.0); HGB 12.7 g/dL (11.2-15.7); Immature Grans % 0.4; Lymphocytes % 23.9; MCH 31.8 pg (27.0-33.0); MCHC 32.4 % (32.0-36.0); MCV 98 fL (80-95); MPV 10.9 fL (8.0-11.0); Monocytes % 6.6; Neutrophils % 61.5; Platelet Count 295 10^3/uL (130-400); RBC 3.99 10^6/uL (3.93-5.22); RDW 13.2 % (11.7-14.6); RDW-SD 47.5 fL; WBC 9.34 10^3/uL (4.4-10.8)
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
[2022-03-01 11:28] LABS: ALT 23 U/L (14-59); AST 16 U/L (15-37); Albumin 3.6 g/dL (3.4-5.0); Alkaline Phosphatase 54 U/L (46-116); Anion Gap 10.8 mmol/L (3-11); BUN 22 mg/dL (7-18); Bilirubin, Total 0.5 mg/dL (0.2-1.0); CO2 19.2 mmol/L (21.0-32.0); CREATININE 0.9 mg/dL (0.55-1.02); Calcium 8.7 mg/dL (8.5-10.1); Chloride 111 mmol/L (98-107); Glucose 78 mg/dL (74-106); Lipase 683 U/L (73-393); Potassium 3.9 mmol/L (3.5-5.1); Sodium 141 mmol/L (136-145); Total Protein 6.8 g/dL (6.4-8.2)
[2022-03-02 13:40] LABS: Chlamydia Result Negative (Negative); GC Result Negative (Negative)
== END 2022-03-01 13:34 | disposition home or self-care (01) ==
PROVIDERS: Emergency Provider Physician Assistant; PCP Nurse Practitioner Family
DX: K85.90 Acute pancreatitis without necrosis or infection, unspecified (principal); N76.0 Acute vaginitis; B37.3 Candidiasis of vulva and vagina
CPT/HCPCS: 36415; 80053; 81025; 83690; 87491; 87591; 99283; 81003; 85025; 87480; 87510; 87660

== ENCOUNTER 2022-03-07 03:02 | Outpatient (CLI) | payer OTHER, MEDICAID, SELFPAY ==
[2022-03-07 16:39] LABS: HCT 37.6 % (36.0-46.0); HGB 12.3 g/dL (11.2-15.7); MCH 32.1 pg (27.0-33.0); MCHC 32.7 % (32.0-36.0); MCV 98 fL (80-95); MPV 10.6 fL (8.0-11.0); Platelet Count 280 10^3/uL (130-400); RBC 3.83 10^6/uL (3.93-5.22); RDW 13.5 % (11.7-14.6); RDW-SD 48.7 fL; WBC 10.38 10^3/uL (4.4-10.8)
[2022-03-07 16:54] LABS: ALT 35 U/L (14-59); AST 26 U/L (15-37); Albumin 3.6 g/dL (3.4-5.0); Alkaline Phosphatase 59 U/L (46-116); BUN 26 mg/dL (7-18); Bilirubin, Total 0.4 mg/dL (0.2-1.0); Calcium 8.7 mg/dL (8.5-10.1); Chloride 112 mmol/L (98-107); Glucose 77 mg/dL (74-106); Lipase 94 U/L (73-393); Potassium 3.6 mmol/L (3.5-5.1); Sodium 143 mmol/L (136-145); Total Protein 6.8 g/dL (6.4-8.2)
== END 2022-03-07 03:03 | disposition home or self-care (01) ==
LOC: LBO 03:04
PROVIDERS: PCP Nurse Practitioner Family; Visit Provider Family Medicine
DX: I10 Essential (primary) hypertension (principal); R10.9 Unspecified abdominal pain; K85.90 Acute pancreatitis without necrosis or infection, unspecified; G43.909 Migraine, unspecified, not intractable, without status migrainosus
CPT/HCPCS: 36415; 80053; 83690; 85027

== ENCOUNTER 2022-05-07 08:49 | Emergency (ER) | payer OTHER, MEDICAID, SELFPAY ==
[2022-05-07 09:04] VITALS: BP 107/51; PULSE 57; RESP 16; TEMP 36.6; O2SAT 100
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
--- NOTE | 2022-05-07 09:15 | DI.CT_ITS ---
Exam(s) CT ABDOMEN PELVIS W EXAM: CT ABDOMEN PELVIS W CLINICAL HISTORY: diffuse abd pain,nausea,dysuria,r/o pyelo, colitis. TECHNIQUE: Imaging Protocol: Axial computed tomography images with coronal and sagittal reformatted images were created and reviewed CONTRAST MATERIAL: Intravenous: Omnipaque 350 Contrast volume:100 ml Oral: no COMPARISON: CT CT THORACIC LUMBAR SPINE REC from 05/18/2019 FINDINGS: ABDOMEN: Lung Bases: Normal where visualized. Liver: Normal density. No measurable mass. Gallbladder and biliary tract: Status post cholecystectomy. No radiodense calculus or dilation. Pancreas: Normal density, no abnormal calcifications or inflammatory process. Spleen: Normal. Kidneys: Normal size, contour and axis. No radiodense stones or obstructive uropathy. No masses seen. Adrenal glands: No masses seen. Abdominal Aorta: Abdominal portion non-dilated. Soft tissues: Tiny fatty containing umbilical hernia. PELVIS: Bladder: Empty. Not evaluated. Bowel: Moderate quantity of stool. No obstruction or bowel wall thickening. Appendix normal. Peritoneal cavity: No ascites, collection or mesenteric inflammatory response. Bones: Within normal limits for age. Reproductive organs: . Dominant follicle left ovary. Lymph nodes: Unremarkable. Impression: Unremarkable CT scan of the abdomen and pelvis. The bladder is empty and not well evaluated. Results of this exam have been verbally communicated with the emergency department provider. RADIATION DOSE DELIVERED: 1,500.29mGy.cm Total DLP DATA REPOSITORY: All CT scans at this facility are submitted to the National Radiology Data Registry (NRDR) Dose Index Registry (DIR) with the [employer] (A[employer]). RADIATION OPTIMIZATION: All CT scans at this facility use at least one of these dose optimization te chniques: automated exposure control; mA and/or kV adjustment per patient size (includes targeted exa ms where dose is matched to clinical indication); or iterative reconstruction.
[2022-05-07 09:56] LABS: Abs Immature Grans 0.05 10^3/uL (0.0-0.06); Absolute Basophil Count 0.06 10^3/uL (0.0-0.2); Absolute Eosinophil Count 0.19 10^3/uL (0.0-0.7); Absolute Lymphocyte Count 1.93 10^3/uL (1.2-3.4); Absolute Monocyte Count 0.63 10^3/uL (0.1-0.8); Absolute Neutrophil Count 7.41 10^3/uL (1.2-6.7); Basophils % 0.6; Eosinophils % 1.9; HCT 39.6 % (36.0-46.0); HGB 12.7 g/dL (11.2-15.7); Immature Grans % 0.5; Lymphocytes % 18.8; MCH 31.4 pg (27.0-33.0); MCHC 32.1 % (32.0-36.0); MCV 98 fL (80-95); Monocytes % 6.1; Neutrophils % 72.1; Platelet Count 318 10^3/uL (130-400); RBC 4.04 10^6/uL (3.93-5.22); RDW 13.2 % (11.7-14.6); RDW-SD 47.6 fL; WBC 10.27 10^3/uL (4.4-10.8)
[2022-05-07] MEDS: Ondansetron 4 MG/2 ML VIAL IVP (09:57)
[2022-05-07 09:58] LABS: Bilirubin Negative (Negative); Blood Negative (Negative); Clarity Clear (Clear); Glucose Negative (Negative); Ketones Negative (Negative); Leukocyte Esterase Negative (Negative); Nitrite Negative (Negative); Specific Gravity 1.025 (1.005-1.025); pH 6.5 (5-8)
[2022-05-07] MEDS: Ketorolac 30 MG/ML VIAL IVP (09:58)
[2022-05-07] MEDS: Normal Saline 1,000 ML 1000 ML IV (09:58)
[2022-05-07 10:16] LABS: ALT 66 U/L (14-59); AST 48 U/L (15-37); Albumin 3.1 g/dL (3.4-5.0); Alkaline Phosphatase 76 U/L (46-116); Anion Gap 9.4 mmol/L (3-11); BUN 24 mg/dL (7-18); Bilirubin, Total 0.4 mg/dL (0.2-1.0); CO2 20.6 mmol/L (21.0-32.0); Chloride 110 mmol/L (98-107); Estimated GFR 72.58 (mL/min/1.73m2); Glucose 91 mg/dL (74-106); Lipase 107 U/L (73-393); Sodium 140 mmol/L (136-145); Total Protein 6.7 g/dL (6.4-8.2)
[2022-05-07] MEDS: Omnipaque 350 MG/ML 100 ML BTL IJ (11:10)
[2022-05-07] MEDS: Normal Saline Flush 10 ML SYR IVP (11:11)
[2022-05-07] MEDS: ACETAMINOPHEN 1,000 MG/100 ML BTL 400 MG IVPB (12:29)
--- NOTE | 2022-05-07 13:58 | NUR.NOTE ---
Nursing Note: Referral faxed to [facility] for chronic abd pain/nausea; within 1 to 2 weeks.
--- NOTE | 2022-05-07 14:13 | NUR.NOTE ---
Nursing Note: Patient asked Access about phone numbers Dr Nava was going to give her. Spoke with Dr Nava and gave patient dental list, gave her results of vag path screen, negative per Dr Nava and can continue the medication. Also told her that she was referred to [facility] and that they would be calling her.
[2022-05-07 16:18] LABS: Lab Add On Test DONE
[2022-05-07 17:37] LABS: *AMPHETAMINES SCREEN URINE Negative (Negative); *BARBITURATES SCREEN URINE Negative (Negative); *BENZODIAZEPINES SCREEN URINE Negative (Negative); Cannabinoids THC Negative (Negative); Cocaine Screen,Urine Negative (Negative); METHADONE URINE SCREEN Negative (Negative); OPIATES URINE SCREEN Negative (Negative); Tricyclic Antidepressants Negative (Negative)
[2022-05-08 05:16] LABS: Lab Add On Test DONE
[2022-05-09 15:32] LABS: Chlamydia Result Negative (Negative); GC Result Negative (Negative)
[2022-05-13 12:34] LABS: 2-OH-Ethyl-Flurazepam Negative ng/mL (Cutoff: 10); 7-NH-Clonazepam Negative ng/mL (Cutoff: 10); 7-NH-Flunitrazepam Negative ng/mL (Cutoff: 10); Alpha OH-Alprazolam Negative ng/mL (Cutoff: 10); Alpha-OH Midazolam Negative ng/mL (Cutoff: 10); Alpha-OH-Triazolam Negative ng/mL (Cutoff: 10); Alprazolam Negative ng/mL (Cutoff: 10); Benzodiazepines Interpretation Negative.; Chlordiazepoxide Negative ng/mL (Cutoff: 10); Clobazam Negative ng/mL (Cutoff: 10); Clonazepam Negative ng/mL (Cutoff: 10); Diazepam Negative ng/mL (Cutoff: 10); Flurazepam Negative ng/mL (Cutoff: 10); Lorazepam Negative ng/mL (Cutoff: 10); Midazolam Negative ng/mL (Cutoff: 10); N-Desmethylclobazam Negative ng/mL (Cutoff: 10); Prazepam Negative ng/mL (Cutoff: 10); Temazepam Negative ng/mL (Cutoff: 10); Triazolam Negative ng/mL (Cutoff: 10); Zolpidem Carboxylic acid Negative ng/mL (Cutoff: 10)
[2022-05-24 13:13] LABS: Amphetamine None Detected
== END 2022-05-07 13:34 | disposition home or self-care (01) ==
PROVIDERS: Emergency Provider Physician Assistant; PCP Nurse Practitioner Family
DX: R10.84 Generalized abdominal pain (principal); G89.29 Other chronic pain; R11.0 Nausea; K00.0 Anodontia; Z90.49 Acquired absence of other specified parts of digestive tract
CPT/HCPCS: 36415; 80053; 80307; 80324; 81025; 83690; 87491; 87591; 96361; 96374; 96375; 99285; 74177; 80346; 81003; 85025; 87480; 87510; 87660; 99284; J0131; J1885; J2405; J3490

== ENCOUNTER 2022-06-01 16:24 | Emergency (ER) | payer OTHER, MEDICAID, SELFPAY ==
--- NOTE | 2022-06-01 17:12 | W.ED.GENAD ---
Discharge Plan Disposition Patient Disposition: HOME Condition: Stable Discharge Details Clinical Impression: COVID-19 Primary Care Provider: Claribel Moore ED Provider: Junior Akbar Home Meds and New Rx's Prescriptions: Continued clindamycin HCl 300 mg capsule 300 mg PO TID Qty: 21 0RF valacyclovir [Valtrex] 500 mg tablet 500 mg PO BID Qty: 6 1RF penicillin V potassium 500 mg tablet 500 mg PO QID Qty: 28 0RF Rx Instructions: Take with food. Take 1 tab every 6 hours x 7 days ibuprofen 800 mg tablet 800 mg PO Q8H PRN (Reason: pain) Qty: 30 0RF Rx Instructions: May take 1 tab every 8 hours as needed for pain epinephrine [EpiPen 2-Presley] 0.3 mg/0.3 mL auto-injector 0.3 mg IJ PRN PRN (Reason: anaphylaxis) Qty: 2 5RF albuterol sulfate 90 mcg/actuation HFA aerosol inhaler 2 puff inhalation Q6H PRN (Reason: shortness of breath or wheezing) Qty: 6.7 0RF cyclobenzaprine 5 mg tablet 5 mg PO TID PRN (Reason: muscle spasm) Qty: 60 0RF Rx Instructions: Take 1 tablet by mouth three times a day as needed for back pain topiramate 200 mg tablet 200 mg PO BID Qty: 180 4RF pantoprazole 40 mg tablet,delayed release (DR/EC) 40 mg PO BID Qty: 180 4RF chlorhexidine gluconate 0.12 % mouthwash 15 ml buccal BID Qty: 473 12RF propranolol 120 mg capsule,extended release 24 hr 120 mg PO BID Qty: 180 3RF rizatriptan 10 mg tablet See Rx Instructions PO .COMPLEX Qty: 9 5RF Dose Instruction: take 1 tab at onset of headache; if no relief may repeat 1 tab in 2hr; max = 3 tabs/day (24hr) PO Rx Instructions: take 1 tab at onset of headache; if no relief may repeat 1 tab in 2hr; max = 3 tabs/day (24hr) orally; Vyvanse 50 mg capsule 50 mg PO DAILY MDD 50mg Qty: 28 0RF clonazepam 2 mg tablet 2 mg PO TID Qty: 84 0RF clindamycin HCl 150 mg capsule 3 cap PO TID Label Comments: TAKE 3 CAPSULES BY MOUTH THREE TIMES DAILY fluconazole [Diflucan] 150 mg tablet 150 mg PO Q3D Qty: 2 0RF promethazine 25 mg tablet 25 mg PO TID PRN (Reason: nausea and vomiting) Qty: 7 0RF Discharge Instructions Instructions: COVID-19 (Coronavirus Disease 2019) (ED) Additional Instructions: Please take the antiviral paxlovid as prescribed. Maintain home isolation for at least 5 days and isolate from others in your home. If you have no symptoms in 5 days you may end isolation. If you continue to have symptoms at day 5, you should continue to isolate until you are fever free for 24 hours without the use of fever reducing medication and your symptoms are improving. Please contact your primary care physician to arrange follow-up. Return to the ER immediately for any worsening or new concerning symptoms. Referrals: Claribel Moore NP [Primary Care Provider] - Medical Decision Making 41-year-old female here with headache, chills, sore throat and cough for the past 4 days. Patient is not vaccinated against COVID. Patient is saturating well in no respiratory distress. Chest x-ray was interpreted by radiology: No acute pulmonary disease. COVID test is positive. Patient has high risk for worsening disease given not vaccinated and obesity. I will initiate treatment with pack Slo-Bid. Patient provided verbal consent to treatment. Usual customary discharge instructions were reviewed with the patient. I stressed need for isolation. HPI General Mode of arrival: ambulatory. Date/Time Provider Initiated Documentation: 06/01/22 16:53. Limitations to Documentation: no limitations. Information obtained by: patient. HPI Narrative: 41-year-old female presents with chief complaint of flulike illness. Patient has has been feeling ill for the past 4 days. She has headache, sore throat that is described as burning, chills, she has had significant productive coughing, no shortness of breath. No chest pain. No known sick contacts symptoms are moderate. No modifiers. No known sick contacts. She is not vaccinated against influenza or COVID. Related Data Home Medications Medication Instructions Recorded Confirmed epinephrine 0.3 mg/0.3 mL 0.3 mg (0.3 mL) IJ PRN PRN 03/23/21 06/01/22 injection, auto-injector (EpiPen anaphylaxis ##2 2-Presley) albuterol sulfate 90 mcg/actuation 2 puff inhalation Q6H PRN 06/15/21 06/01/22 aerosol inhaler shortness of breath or wheezing #6.7 grams cyclobenzaprine 5 mg tablet 5 mg PO TID PRN muscle spasm #60 06/15/21 06/01/22 tabs topiramate 200 mg tablet 200 mg PO BID #180 tabs 06/15/21 06/01/22 valacyclovir 500 mg tablet 500 mg PO BID #6 tabs 07/27/21 06/01/22 (Valtrex) pantoprazole 40 mg tablet,delayed 40 mg PO BID #180 tabs 02/26/22 06/01/22 release chlorhexidine gluconate 0.12 % 15 ml buccal BID #473 mL 04/03/22 06/01/22 mouthwash clindamycin HCl 150 mg capsule 3 cap PO TID 05/07/22 06/01/22 fluconazole 150 mg tablet 150 mg PO Q3D 2 doses #2 tabs 05/07/22 06/01/22 (Diflucan) promethazine 25 mg tablet 25 mg PO TID PRN nausea and 05/07/22 06/01/22 vomiting #7 tabs propranolol 120 mg capsule,24 120 mg PO BID #180 tab-caps 05/08/22 06/01/22 hr,extended release rizatriptan 10 mg tablet See Rx Instructions PO .COMPLEX #9 05/08/22 06/01/22 tabs clonazepam 2 mg tablet 2 mg PO TID #84 tabs 05/10/22 06/01/22 lisdexamfetamine 50 mg capsule 50 mg PO DAILY #28 caps 05/10/22 06/01/22 (Vyvanse) clindamycin HCl 300 mg capsule 300 mg PO TID #21 caps 05/14/22 06/01/22 ibuprofen 800 mg tablet 800 mg PO Q8H PRN pain #30 tabs 05/27/22 06/01/22 penicillin V potassium 500 mg 500 mg PO QID #28 tabs 05/27/22 06/01/22 tablet Previous Rx's Medication Instructions Recorded epinephrine 0.3 mg/0.3 mL 0.3 mg (0.3 mL) IJ PRN PRN 03/23/21 injection, auto-injector (EpiPen anaphylaxis ##2 2-Presley) albuterol sulfate 90 mcg/actuation 2 puff inhalation Q6H PRN 06/15/21 aerosol inhaler shortness of breath or wheezing #6.7 grams cyclobenzaprine 5 mg tablet 5 mg PO TID PRN muscle spasm #60 06/15/21 tabs topiramate 200 mg tablet 200 mg PO BID #180 tabs 06/15/21 valacyclovir 500 mg tablet 500 mg PO BID #6 tabs 07/27/21 (Valtrex) pantoprazole 40 mg tablet,delayed 40 mg PO BID #180 tabs 02/26/22 release chlorhexidine gluconate 0.12 % 15 ml buccal BID #473 mL 04/03/22 mouthwash fluconazole 150 mg tablet 150 mg PO Q3D 2 doses #2 tabs 05/07/22 (Diflucan) promethazine 25 mg tablet 25 mg PO TID PRN nausea and 05/07/22 vomiting #7 tabs propranolol 120 mg capsule,24 120 mg PO BID #180 tab-caps 05/08/22 hr,extended release rizatriptan 10 mg tablet See Rx Instructions PO .COMPLEX #9 05/08/22 tabs clonazepam 2 mg tablet 2 mg PO TID #84 tabs 05/10/22 lisdexamfetamine 50 mg capsule 50 mg PO DAILY #28 caps 05/10/22 (Vyvanse) clindamycin HCl 300 mg capsule 300 mg PO TID #21 caps 05/14/22 ibuprofen 800 mg tablet 800 mg PO Q8H PRN pain #30 tabs 05/27/22 penicillin V potassium 500 mg 500 mg PO QID #28 tabs 05/27/22 tablet Allergies Allergy/AdvReac Type Severity Reaction Status Date / Time adhesive Allergy RASH Verified 06/01/22 17:29 latex Allergy RASH Verified 06/01/22 17:29 General Stated Complaint: RespSymp KATHE: 4 Review of Systems All systems reviewed & are unremarkable except as noted in HPI and below Constitutional Constitutional: Reports fever(s) ENT Ears, Nose, Mouth, and Throat: Reports sore throat Respiratory Respiratory: Reports cough PFSH All Active Problems (Updated 06/01/22 @ 18:44 by Junior Akbar MD) COVID-19 (Acute) Chronic abdominal pain (Acute) IBS (irritable bowel syndrome) (Chronic) Obesity (Chronic) Contraceptive surveillance (Chronic) PTSD (post-traumatic stress disorder) (Chronic) Generalized anxiety disorder (Chronic) Major depressive disorder (Chronic) Attention deficit hyperactivity disorder (ADHD), predominantly inattentive type (Chronic) Lumbar back pain with radiculopathy affecting lower extremity (Chronic) Migraine (Chronic) Chronic pain of right knee (Chronic) Carpal tunnel syndrome (Chronic) Genital herpes (Chronic) Surgical History History of bilateral tubal ligation S/P cholecystectomy Family History Mother No problems noted. Father Sleep apnea Social History Smoking/Tobacco Use Status: Never Second Hand Exposure: Yes Smoking risk assessment performed?: Yes Alcohol Intake: never Drug use: Occasionally Substance use type: marijuana Caregiver/Support person: No Household members: none Housing: apartment Number of Children: 5 Do you need help understanding health information?: Rarely Pets and animals: Yes Pets and animals: cat(s) Sexually active: Yes Do you think of yourself as: straight/heterosexual Current gender identity: female What is your relationship status?: never How often do you talk on the phone with friends or family?: three or more times per week How often do you get together with friends or relatives?: twice per week How often do you attend orthodoxy or quaker services?: decline to answer Do you belong to any clubs or organized social groups?: no Panel score (0-1 are the most socially isolated patients): 1 What type of physical activity do you participate in: walking Frequency: 3-4 times per week Jennifer/Confucianism: No preference Seatbelt use: always Drive intox or ride w/intox dolly driver: No Working smoke detector in home: Yes Fire extinguisher in home: Yes Carbon monox detector in home: Yes Firearms in home: No Do you feel safe at home: Yes Do you feel safe in your relationship?: Yes Female Reproductive History Menstrual control method: progesterone injection History History 4 Para Hx # Term Pregnancies 4 Multiple births 1 Hx # Pregnancies Ectopic pregnancies AB induced Hx Number of Living Children AB spontaneous Exam Const General: cooperative and no acute distress HENMT Mouth: moist mucous membranes Throat: posterior oropharynx normal Eyes Conjunctivae: normal conjunctivae Sclera: normal sclerae Neck Neck: trachea midline and supple Resp Auscultation: clear to auscultation bilaterally, no rales, no rhonchi and no wheezes Cardio Rate: regular rate and not tachycardic Rhythm: regular rhythm GI Palpation: soft, not firm, no guarding, no masses, not rigid and nontender Skin General skin exam: no rashes or lesions noted Neuro General: patient alert, patient awake and tone normal Extrem General: no edema Psych Appearance: grossly normal Mental Status: mental status grossly normal Speech and Movement: speech and movement normal Course Vital Signs Vital signs: Temperature Source Temporal Artery Scan 06/01/22 16:29 Respiratory Effort Non-Labored 06/01/22 16:35 Blood Pressure Position Sitting 06/01/22 16:29 Oxygen Delivery Method Room Air 06/01/22 16:29 Oxygen Flow Rate 0 06/01/22 16:29
[2022-06-01] MEDS: Ibuprofen 600 MG TAB PO (17:20)
--- NOTE | 2022-06-01 17:30 | DI.RAD_ITS ---
Exam(s) XR PORTABLE CHEST AP EXAM: XR PORTABLE CHEST AP CLINICAL HISTORY: cough, pui. TECHNIQUE: 2D digital imaging was performed. COMPARISON: CR,XR XR ABD FLAT UPRIGHT PA CHEST from 07/14/2021 FINDINGS: LUNGS: Clear. No pleural abnormality seen. HEART: Normal. MEDIASTINUM: Normal. OTHER FINDINGS: None. IMPRESSION: No acute pulmonary findings. DATA REPOSITORY: RADIATION DOSE DELIVERED: Total DLP
[2022-06-01 18:11] LABS: Influenza A PCR Negative (Negative); Influenza B PCR Negative (Negative); RSV PCR Negative (Negative)
[2022-06-01 18:30] LABS: COVID-19 PCR Positive (Negative); Source Nasopharynx
--- NOTE | 2022-06-01 19:18 | DI.VRAD_ITS ---
PROCEDURE INFORMATION: Exam: XR Chest Exam date and time: 06/01/2022 5:44 PM Age: 41 years old Clinical indication: Cough TECHNIQUE: Imaging protocol: Radiologic exam of the chest. Views: 1 view. COMPARISON: CR XR ABD FLAT UPRIGHT PA CHEST 07/14/2021 12:57 PM FINDINGS: Lungs: No pulmonary consolidation is seen. Pleural spaces: The costophrenic angles are excluded from view. Within the limits of the exam, no pleural effusion or pneumothorax is demonstrated. Heart/Mediastinum: Heart the heart appears normal in size. Bones/joints: The visualized bony structures appear grossly intact. There is an oval calcification in the subacromial space in the expected location of the supraspinatus tendon with an appearance and location suggesting calcific tendinopathy. IMPRESSION: No active disease is seen in the chest. Dictated and Authenticated by: Mono Stanton MD. Ordering:DAMEON Pacheco MD
== END 2022-06-01 19:07 | disposition home or self-care (01) ==
PROVIDERS: Emergency Provider Student in an Organized Health Care Education/Training Program; PCP Nurse Practitioner Family
DX: U07.1 COVID-19 (principal); E66.9 Obesity, unspecified; Z28.310 Unvaccinated for COVID-19; Z77.22 Contact with and (suspected) exposure to environmental tobacco smoke (acute) (chronic)
CPT/HCPCS: 87637; 99283; 99284; 71045

== ENCOUNTER → 2022-06-17 10:10 | Outpatient (BNVA) | payer OTHER, MEDICAID, SELFPAY | PROVIDERS: PCP Nurse Practitioner Family; Referring Provider Nurse Practitioner Family; Visit Provider Surgery | DX: R10.9 Unspecified abdominal pain (principal); G89.29 Other chronic pain | CPT/HCPCS: 99214 ==

== ENCOUNTER 2022-06-19 03:37 | Outpatient (CLI) | payer OTHER, MEDICAID, SELFPAY ==
[2022-06-24 12:01] LABS: IgA 208 mg/dL (85-499); Interpretation (See Note); Tissue Transglutaminase IgA <1.2 U/mL (<4.0)
== END 2022-06-19 03:38 | disposition home or self-care (01) ==
LOC: LBO 03:37
PROVIDERS: PCP Nurse Practitioner Family; Visit Provider Surgery
DX: R10.9 Unspecified abdominal pain (principal); G89.29 Other chronic pain
CPT/HCPCS: 36415; 82784; 83516

== ENCOUNTER 2022-08-05 14:49 | Outpatient (CLI) | payer OTHER, MEDICAID, SELFPAY ==
[2022-08-05 14:55] LABS: HCT 42.1 % (36.0-46.0); HGB 13.9 g/dL (11.2-15.7); MCH 31.1 pg (27.0-33.0); MCV 94 fL (80-95); MPV 10.3 fL (8.0-11.0); Platelet Count 299 10^3/uL (130-400); RBC 4.47 10^6/uL (3.93-5.22); RDW 12.7 % (11.7-14.6); RDW-SD 43.9 fL; WBC 9.05 10^3/uL (4.4-10.8)
[2022-08-05 15:56] LABS: ALT 33 U/L (14-59); AST 24 U/L (15-37); Albumin 3.9 g/dL (3.4-5.0); Alkaline Phosphatase 75 U/L (46-116); Anion Gap 8.6 mmol/L (3-11); BUN 17 mg/dL (7-18); Bilirubin, Total 0.6 mg/dL (0.2-1.0); CO2 24.4 mmol/L (21.0-32.0); Calcium 9.5 mg/dL (8.5-10.1); Chloride 106 mmol/L (98-107); Estimated GFR 72.58 (mL/min/1.73m2); Glucose 87 mg/dL (74-106); Sodium 139 mmol/L (136-145); TSH (W/Ref FT4) 0.52 uIU/mL (0.36-3.74); Total Protein 7.6 g/dL (6.4-8.2); Vitamin B12 286 pg/mL (193-986)
[2022-08-05 16:05] LABS: Hemoglobin A1C 4.7 % (<5.7)
== END 2022-08-05 14:50 | disposition home or self-care (01) ==
LOC: LBO 14:49
PROVIDERS: PCP Nurse Practitioner Family; Visit Provider Nurse Practitioner Family
DX: R20.2 Paresthesia of skin (principal); R73.01 Impaired fasting glucose
CPT/HCPCS: 36415; 80053; 80186; 85027; 82607; 83036; 84443

== ENCOUNTER → 2022-08-06 01:39 | Outpatient (CLI) | payer OTHER, MEDICAID, SELFPAY ==
--- NOTE | 2022-08-06 07:45 | DI.MAMMO_ITS ---
Exam(s) MAMMO SCREENING EXAM: MAMMO SCREENING CLINICAL HISTORY: screening,Z12.39, BASELINE TECHNIQUE: Bilateral full field digital CC and MLO mammographic images were obtained with 3D tomosyn thesis and utilizing computer aided detection (CAD). COMPARISON: None. FINDINGS: Masses/Architectural Distortion: There is an ovoid intraparenchymal density in the upper-outer quadra nt of the left breast measuring 9 mm. There are no areas of architectural distortion. Microcalcifications: No suspicious pleomorphic-type are seen. Skin Thickening/Nipple Retraction: None. IMPRESSION: 1. 9 mm ovoid density in the upper-outer quadrant of the right breast. 2. Further evaluation with a spot compression view and a limited left breast ultrasound is recommende d. BI-RADS Category 0 - Assessment Incomplete: Need additional imaging evaluation Breast Density - Category B - Scattered areas of fibroglandular density Breast density category C or D implies that the patient has dense breast tissue. Dense breast tissue is very common and is not abnormal but dense breast tissue can make it harder to find cancer on a ma mmogram. Also, dense breast tissue may increase their breast cancer risk. This information about the result of the mammogram report was provided to the patient to raise their awareness. Use this report when you speak with the patient about their risks for breast cancer, which includes their family hist ory. At that time, you may recommend for more screening tests (Ultrasound or MRI) as they might be us eful based on their risk. A negative radiographic report should not delay biopsy if a dominant or clinically suspicious mass is present. Up to ten percent of cancers are not identified on mammography. A negative report may reinforce clinical impression. Adenosis and dense breasts may obscure an underlying neoplasm. False positive reports average 6 to 10%. Patient will receive a letter notifying them of these results.
== END ==
PROVIDERS: PCP Nurse Practitioner Family; Visit Provider Nurse Practitioner Family
DX: Z12.31 Encounter for screening mammogram for malignant neoplasm of breast (principal); R92.8 Other abnormal and inconclusive findings on diagnostic imaging of breast
CPT/HCPCS: 77063; 77067

== ENCOUNTER → 2022-08-16 00:19 | Outpatient (CLI) | payer OTHER, MEDICAID, SELFPAY ==
--- NOTE | 2022-08-16 | DI.MAMMO_ITS ---
Exam(s) MG MAMMO SCREEN CALL BACK UNI US BREAST LT LIMITED EXAM: MG MAMMO SCREEN CALL BACK UNI and U/S breast LT limited CLINICAL HISTORY: F/U MAMMO, OVOID INTRAPARENCHYMAL DENSITY, R92.8. TECHNIQUE: Craniocaudal and mediolateral oblique Full Field Digital Mammography views of the left br east with Computer Aided Diagnosis followed by Tomosynthesis and left breast ultrasound. COMPARISON: Comparison is made with prior examinations. FINDINGS: Mammography/Tomosynthesis: Masses/Architectural Distortion: The very well-circumscribed ovoid nodule in the upper outer quadrant of the left breast is unchanged. This may represent an intraparenchymal lymph node or other benign lesion. No areas of architectural distortion are seen. Microcalcifictions: No suspicious pleomorphic-type are seen. Skin Thickening/Nipple Retraction: None. Limited left breast US: Echotexture: Normal appearance of the glandular tissue. Shadowing: No suspicious foci. Cyst: None. Solid lesions: None seen. Ductal dilation: None. IMPRESSION: 1. No definite evidence of malignancy is noted. 2. A six-month follow-up left mammogram and limited left breast ultrasound are requested for further evaluation. 3. The findings were discussed with the patient on the date of the examination. BI-RADS Category 3 - 6 month - Probably Benign Finding: Recommend follow-up imaging in 6 months Breast Density - Category B - Scattered areas of fibroglandular density Breast density Category C or D implies that the patient has dense breast tissue. Dense breast tissue can make it harder to find cancer on a mammogram. Dense breast tissue is also associated with an incr eased risk of breast cancer. This information about the result of the mammogram report was provided to the patient to raise their awareness. Use this report when you speak with the patient about their risks for breast cancer, which includes their family history. At that time, you may recommend additional screening tests (Ultrasoun d or MRI) as these tests may add significant information. A negative radiographic report should not delay biopsy if a dominant or clinically suspicious mass is present. Up to ten percent of cancers are not identified on mammography. A negative report may reinforce clinical impression. Adenosis and dense breasts may obscure an underlying neoplasm. False positive reports average 6 to 10%. Patient will receive a letter notifying them of these results.
== END ==
PROVIDERS: PCP Nurse Practitioner Family; Visit Provider Nurse Practitioner Family
DX: Z12.31 Encounter for screening mammogram for malignant neoplasm of breast (principal); R92.8 Other abnormal and inconclusive findings on diagnostic imaging of breast; N63.21 Unspecified lump in the left breast, upper outer quadrant
CPT/HCPCS: 76642; 77063; 77067

== ENCOUNTER 2022-09-10 17:26 | Outpatient (REF) | payer OTHER, MEDICAID, SELFPAY ==
[2022-09-12 12:18] LABS: Chlamydia Result Negative (Negative); GC Result Negative (Negative)
== END 2022-09-10 17:27 | disposition home or self-care (01) ==
LOC: LBN 17:26
PROVIDERS: PCP Nurse Practitioner Family; Visit Provider Advanced Practice Midwife
DX: N91.2 Amenorrhea, unspecified (principal); R10.30 Lower abdominal pain, unspecified; N76.0 Acute vaginitis
CPT/HCPCS: 87491; 87591; 87480; 87510; 87660

== ENCOUNTER 2022-10-23 02:59 | Outpatient (CLI) | payer OTHER, MEDICAID, SELFPAY ==
[2022-10-25 09:05] LABS: Hepatitis B Surface Ag Negative (Negative)
[2022-10-25 09:43] LABS: HIV-1/2 Ag & Ab Screen Negative (Negative)
[2022-10-25 10:00] LABS: Hepatitis C Ab w Rflx HCV PCR Negative (Negative)
[2022-10-27 14:40] LABS: Syphilis IgG w/Reflex Nonreactive (Nonreactive)
== END 2022-10-23 03:00 | disposition home or self-care (01) ==
LOC: LBO 02:59
PROVIDERS: PCP Nurse Practitioner Family; Visit Provider Advanced Practice Midwife
DX: Z34.91 Encounter for supervision of normal pregnancy, unspecified, first trimester (principal)
CPT/HCPCS: 36415; 86803; 87340; 87389; 86780

== ENCOUNTER 2022-12-02 13:30 | Outpatient (REF) | payer OTHER, MEDICAID, SELFPAY ==
[2022-12-05 01:28] LABS: 2-OH-Ethyl-Flurazepam Negative ng/mL (Cutoff: 10); 7-NH-Clonazepam Negative ng/mL (Cutoff: 10); 7-NH-Flunitrazepam Negative ng/mL (Cutoff: 10); Alpha OH-Alprazolam Negative ng/mL (Cutoff: 10); Alpha-OH Midazolam Negative ng/mL (Cutoff: 10); Alpha-OH-Triazolam Negative ng/mL (Cutoff: 10); Alprazolam Negative ng/mL (Cutoff: 10); Benzodiazepines Interpretation Negative.; Chlordiazepoxide Negative ng/mL (Cutoff: 10); Clobazam Negative ng/mL (Cutoff: 10); Clonazepam Negative ng/mL (Cutoff: 10); Diazepam Negative ng/mL (Cutoff: 10); Flurazepam Negative ng/mL (Cutoff: 10); Lorazepam Negative ng/mL (Cutoff: 10); Midazolam Negative ng/mL (Cutoff: 10); N-Desmethylclobazam Negative ng/mL (Cutoff: 10); Prazepam Negative ng/mL (Cutoff: 10); Temazepam Negative ng/mL (Cutoff: 10); Triazolam Negative ng/mL (Cutoff: 10); Zolpidem Carboxylic acid Negative ng/mL (Cutoff: 10)
[2022-12-05 22:06] LABS: Amphetamine >10000 ng/mL
== END 2022-12-02 13:31 | disposition home or self-care (01) ==
LOC: LBN 13:30
PROVIDERS: PCP Nurse Practitioner Family; Visit Provider Nurse Practitioner Family
DX: F33.9 Major depressive disorder, recurrent, unspecified (principal); F90.0 Attention-deficit hyperactivity disorder, predominantly inattentive type; M54.16 Radiculopathy, lumbar region
CPT/HCPCS: 80324; 80346

== ENCOUNTER 2023-01-04 16:15 | Outpatient (REF) | payer OTHER, MEDICAID, SELFPAY ==
[2023-01-04 16:27] LABS: Abs Immature Grans 0.05 10^3/uL (0.0-0.06); Absolute Basophil Count 0.05 10^3/uL (0.0-0.2); Absolute Eosinophil Count 0.17 10^3/uL (0.0-0.7); Absolute Lymphocyte Count 2.72 10^3/uL (1.2-3.4); Absolute Monocyte Count 0.67 10^3/uL (0.1-0.8); Basophils % 0.6; HCT 46.3 % (36.0-46.0); HGB 15.5 g/dL (11.2-15.7); Immature Grans % 0.6; Lymphocytes % 31.4; MCH 31.5 pg (27.0-33.0); MCHC 33.5 % (32.0-36.0); MCV 94 fL (80-95); MPV 10.3 fL (8.0-11.0); Monocytes % 7.7; Neutrophils % 57.7; Platelet Count 345 10^3/uL (130-400); RBC 4.92 10^6/uL (3.93-5.22); RDW 13.5 % (11.7-14.6); RDW-SD 46.9 fL; WBC 8.66 10^3/uL (4.4-10.8)
[2023-01-04 16:37] LABS: ALT 87 U/L (14-59); AST 31 U/L (15-37); Albumin 3.5 g/dL (3.4-5.0); Alkaline Phosphatase 153 U/L (46-116); Amylase 89 U/L (25-115); Anion Gap 12.8 mmol/L (3-11); BUN 15 mg/dL (7-18); Bilirubin, Total 0.4 mg/dL (0.2-1.0); CO2 18.2 mmol/L (21.0-32.0); Calcium 8.5 mg/dL (8.5-10.1); Chloride 110 mmol/L (98-107); Estimated GFR 72.13 (mL/min/1.73m2); Glucose 81 mg/dL (74-106); Potassium 3.7 mmol/L (3.5-5.1); Sodium 141 mmol/L (136-145); Total Protein 7.2 g/dL (6.4-8.2)
== END 2023-01-04 16:16 | disposition home or self-care (01) ==
LOC: LBN 16:15
PROVIDERS: PCP Nurse Practitioner Family; Visit Provider Nurse Practitioner Family
DX: R19.8 Other specified symptoms and signs involving the digestive system and abdomen (principal); R10.84 Generalized abdominal pain; K58.0 Irritable bowel syndrome with diarrhea; R23.2 Flushing; R11.2 Nausea with vomiting, unspecified
CPT/HCPCS: 80053; 82150; 83735; 85025

== ENCOUNTER 2023-01-09 11:03 | Outpatient (REF) | payer OTHER, MEDICAID, SELFPAY ==
[2023-01-09 23:47] LABS: Campylobacter PCR Negative (Negative); Salmonella PCR Negative (Negative); Shiga Toxin PCR Negative (Negative); Shigella/Enteroinvasive Ecoli Negative (Negative)
== END 2023-01-09 11:04 | disposition home or self-care (01) ==
LOC: LBN 11:03
PROVIDERS: PCP Nurse Practitioner Family; Visit Provider Nurse Practitioner Family
DX: R19.7 Diarrhea, unspecified (principal); R19.8 Other specified symptoms and signs involving the digestive system and abdomen
CPT/HCPCS: 87505; 87177

== ENCOUNTER 2023-01-13 10:42 | Outpatient (CLI) | payer OTHER, MEDICAID, SELFPAY ==
[2023-01-13 13:22] LABS: *AMPHETAMINES SCREEN URINE Negative (Negative); *BARBITURATES SCREEN URINE Negative (Negative); *BENZODIAZEPINES SCREEN URINE Negative (Negative); Cannabinoids THC Negative (Negative); Cocaine Screen,Urine Negative (Negative); OPIATES URINE SCREEN Negative (Negative)
[2023-01-13 13:23] LABS: Tricyclic Antidepressants Negative (Negative)
[2023-01-13 13:51] LABS: ALT 42 U/L (14-59); AST 19 U/L (15-37); Albumin 3.4 g/dL (3.4-5.0); Alkaline Phosphatase 97 U/L (46-116); Anion Gap 9.7 mmol/L (3-11); BUN 17 mg/dL (7-18); Bilirubin, Total 0.5 mg/dL (0.2-1.0); CO2 20.3 mmol/L (21.0-32.0); CREATININE 0.9 mg/dL (0.55-1.02); Calcium 8.5 mg/dL (8.5-10.1); Chloride 109 mmol/L (98-107); Estimated GFR 81.86 (mL/min/1.73m2); Glucose 99 mg/dL (74-106); Potassium 3.9 mmol/L (3.5-5.1); Sodium 139 mmol/L (136-145); Total Protein 7.3 g/dL (6.4-8.2)
== END 2023-01-13 10:43 | disposition home or self-care (01) ==
LOC: LOS 10:42
PROVIDERS: PCP Nurse Practitioner Family; Visit Provider Nurse Practitioner Family
DX: K52.9 Noninfective gastroenteritis and colitis, unspecified (principal); F33.9 Major depressive disorder, recurrent, unspecified; F90.0 Attention-deficit hyperactivity disorder, predominantly inattentive type; M54.16 Radiculopathy, lumbar region
CPT/HCPCS: 36415; 80053; 80307

== ENCOUNTER 2023-02-20 21:15 | Outpatient (REF) | payer OTHER, MEDICAID, SELFPAY | END 2023-02-20 21:16 | disposition home or self-care (01) | LOC: LBN 21:15 | PROVIDERS: PCP Nurse Practitioner Family; Visit Provider Nurse Practitioner Family | DX: N89.8 Other specified noninflammatory disorders of vagina (principal) | CPT/HCPCS: 87480; 87510; 87660 ==

== ENCOUNTER 2023-02-21 | Outpatient (CLI) | payer OTHER, MEDICAID, SELFPAY ==
--- NOTE | 2023-02-21 07:38 | DI.MAMMO_ITS ---
Exam(s) MAMMO DIAGNOSTIC UNI EXAM: MAMMO DIAGNOSTIC UNI CLINICAL HISTORY: 6 month follow up,R92.8,NODULE,? LYMPH NODE TECHNIQUE: Left cc and MLO mammogram images were performed according to the usual protocol includ ing computer analysis with CAD system, tomosynthesis and C-view imaging. COMPARISON: No exams were available for comparison FINDINGS: The left breast is composed of fatty density tissue, breast density category a. No suspicious masses or suspicious microcalcifications are seen. There has been no change in the cir cumscribed ovoid low-density nodule in the upper outer quadrant of the left breast, consistent with i ntramammary lymph node. No skin thickening or abnormal axillary lymph nodes are seen. IMPRESSION: BI-RADS Category 1, Negative mammogram Resume bilateral screening mammography, due in 6 months. Breast Density - Category B, scattered fibroglandular densities. A negative radiographic report should not delay biopsy if a dominant or clinically suspicious mass is present. Up to ten percent of cancers are not identified on mammography. A negative report may reinforce clinical impression. Adenosis and dense breasts may obscure an underlying neoplasm. False positive reports average 6 to 10%. Patient will receive a letter notifying them of these results.
== END 2023-02-21 00:20 ==
LOC: DI
PROVIDERS: PCP Nurse Practitioner Family; Visit Provider Nurse Practitioner Family
DX: Z12.31 Encounter for screening mammogram for malignant neoplasm of breast (principal); R92.8 Other abnormal and inconclusive findings on diagnostic imaging of breast
CPT/HCPCS: 77061; 77065; G0279

== ENCOUNTER 2023-03-02 22:47 | Emergency (ER) | payer OTHER, MEDICAID, SELFPAY ==
[2023-03-02 22:49] VITALS: BP 130/87; PULSE 69; RESP 20; TEMP 36; O2SAT 98
[2023-03-02 23:05] VITALS: RESP 18
--- NOTE | 2023-03-02 23:07 | ED.GENADUL_ITS ---
Discharge Plan Disposition Patient Disposition: Home Condition: Stable Discharge Details Clinical Impression: Left lumbar radiculopathy Primary Care Provider: Claribel Moore ED Provider: Ruth Gonzalez Home Meds and New Rx's Prescriptions: New prednisone 20 mg tablet 40 mg PO DAILY Qty: 8 0RF Continued loperamide 2 mg capsule 2 mg PO Q6H PRN (Reason: loose stool) Qty: 30 0RF Rx Instructions: Take as needed for diarrhea dicyclomine 10 mg capsule 10 mg PO TID PRN (Reason: abdominal pain) Qty: 60 0RF Digestive Advantage Advanced 10 billion cell capsule 10 cell PO DAILY Qty: 90 3RF propranolol 120 mg capsule,extended release 24 hr 120 mg PO BID Qty: 180 3RF fluoxetine 10 mg capsule 10 mg PO DAILY Qty: 90 0RF clotrimazole 1 % cream 1 applic topical BID Qty: 45 0RF Rx Instructions: Apply to affected areas twice a dayfor 2-4wks epinephrine [EpiPen 2-Presley] 0.3 mg/0.3 mL auto-injector 0.3 mg IM ONCE PRN (Reason: anaphylaxis) Qty: 2 5RF albuterol sulfate 90 mcg/actuation HFA aerosol inhaler 2 puff inhalation Q6H PRN (Reason: shortness of breath or wheezing) Qty: 6.7 3RF chlorhexidine gluconate 0.12 % mouthwash 15 ml buccal BID Qty: 473 12RF ibuprofen 800 mg tablet 800 mg PO Q8H PRN (Reason: pain) Qty: 30 1RF Rx Instructions: May take 1 tab every 8 hours as needed for pain multivitamin Tablet 1 tab PO DAILY Qty: 90 3RF pantoprazole 40 mg tablet,delayed release (DR/EC) 40 mg PO BID Qty: 180 3RF rizatriptan 10 mg tablet 10 mg PO ONCE PRN (Reason: migraine headache) Qty: 60 5RF Rx Instructions: take 1 tab at onset of headache; if no relief may repeat 1 tab in 2hr topiramate 200 mg tablet 200 mg PO BID Qty: 180 3RF clonazepam 2 mg tablet 2 mg PO TID Qty: 84 2RF lisdexamfetamine 60 mg capsule 60 mg PO DAILY MDD 60mg Qty: 28 0RF promethazine 25 mg tablet 25 mg PO Q6H PRN (Reason: nausea and vomiting) Qty: 60 0RF Discharge Data Discharge Date/Time-TO BE ENTERED AT DEPARTURE: 03/02/23 23:25 Medical Decision Making This 42-year-old female presents with back pain with radiculopathy History of chronic back pain with likely acute exacerbation secondary to slipping on floor with a new puppy No clinical signs or symptoms consistent with cauda equina syndrome, negative Babinski, negative straight leg raise, afebrile and nontoxic, no weakness, DTRs intact bilateral lower extremities, positive straight leg raise Ambulatory with antalgic but steady gait We will place on prednisone for radiculopathy No indication for x-ray imaging, she does have an MRI scheduled this at [facility] as she is claustrophobic, she is encouraged to follow-up with her appointment there Discharged home with stable vitals in stable condition Return precautions reviewed and patient expressed understanding Encouraged to follow-up with primary care physician in 1 to 2 days for reassessment HPI General Date/Time Provider Initiated Documentation: 03/02/23 22:49 . HPI Narrative: This 42-year-old female presents with report of back pain, history of chronic back pain, acute exacerbation, radiating into left lower extremity, denies changes in bowel or bladder, denies chance of . Denies fever or chills, denies history of illicit drug use. States the pain is exacerbated with movement. Denies any abdominal pain. States that history of chronic back pain but sleeping on the floor with a new puppy and thinks this exacerbated her pain. Related Data Home Medications Medication Instructions Recorded Confirmed epinephrine 0.3 mg/0.3 mL 0.3 mg (0.3 mL) IM ONCE PRN 08/05/22 03/02/23 injection, auto-injector (EpiPen anaphylaxis #2 ea 2-Prelsey) loperamide 2 mg capsule 2 mg PO Q6H PRN loose stool #30 09/02/22 03/02/23 caps L.acidoph, paracasei,B. lactis 10 10 cell PO DAILY #90 caps 01/04/23 03/02/23 billion cell capsule (Digestive Advantage Advanced Probiotic) dicyclomine 10 mg capsule 10 mg PO TID PRN abdominal pain 01/04/23 03/02/23 #60 caps albuterol sulfate 90 mcg/actuation 2 puff inhalation Q6H PRN 01/31/23 03/02/23 aerosol inhaler shortness of breath or wheezing #6.7 grams chlorhexidine gluconate 0.12 % 15 ml buccal BID #473 mL 01/31/23 03/02/23 mouthwash clotrimazole 1 % topical cream 1 applic topical BID #45 grams 02/05/23 03/02/23 ibuprofen 800 mg tablet 800 mg PO Q8H PRN pain #30 tabs 02/06/23 03/02/23 multivitamin 1 tab PO DAILY #90 tabs 02/06/23 03/02/23 pantoprazole 40 mg tablet,delayed 40 mg PO BID #180 tabs 02/12/23 03/02/23 release rizatriptan 10 mg tablet 10 mg PO ONCE PRN migraine 02/12/23 03/02/23 headache #60 tabs topiramate 200 mg tablet 200 mg PO BID #180 tabs 02/12/23 03/02/23 clonazepam 2 mg tablet 2 mg PO TID #84 tabs 02/26/23 03/02/23 lisdexamfetamine 60 mg capsule 60 mg PO DAILY #28 caps 02/26/23 03/02/23 promethazine 25 mg tablet 25 mg PO Q6H PRN nausea and 02/26/23 03/02/23 vomiting #60 tabs fluoxetine 10 mg capsule 10 mg PO DAILY #90 caps 02/28/23 03/02/23 propranolol 120 mg capsule,24 120 mg PO BID #180 tab-caps 02/28/23 03/02/23 hr,extended release prednisone 20 mg tablet 40 mg PO DAILY #8 tabs 03/02/23 Previous Rx's Medication Instructions Recorded epinephrine 0.3 mg/0.3 mL 0.3 mg (0.3 mL) IM ONCE PRN 08/05/22 injection, auto-injector (EpiPen anaphylaxis #2 ea 2-Presley) loperamide 2 mg capsule 2 mg PO Q6H PRN loose stool #30 09/02/22 caps L.acidoph, paracasei,B. lactis 10 10 cell PO DAILY #90 caps 01/04/23 billion cell capsule (Digestive Advantage Advanced Probiotic) dicyclomine 10 mg capsule 10 mg PO TID PRN abdominal pain 01/04/23 #60 caps albuterol sulfate 90 mcg/actuation 2 puff inhalation Q6H PRN 01/31/23 aerosol inhaler shortness of breath or wheezing #6.7 grams chlorhexidine gluconate 0.12 % 15 ml buccal BID #473 mL 01/31/23 mouthwash clotrimazole 1 % topical cream 1 applic topical BID #45 grams 02/05/23 ibuprofen 800 mg tablet 800 mg PO Q8H PRN pain #30 tabs 02/06/23 multivitamin 1 tab PO DAILY #90 tabs 02/06/23 pantoprazole 40 mg tablet,delayed 40 mg PO BID #180 tabs 02/12/23 release rizatriptan 10 mg tablet 10 mg PO ONCE PRN migraine 02/12/23 headache #60 tabs topiramate 200 mg tablet 200 mg PO BID #180 tabs 02/12/23 clonazepam 2 mg tablet 2 mg PO TID #84 tabs 02/26/23 lisdexamfetamine 60 mg capsule 60 mg PO DAILY #28 caps 02/26/23 promethazine 25 mg tablet 25 mg PO Q6H PRN nausea and 02/26/23 vomiting #60 tabs fluoxetine 10 mg capsule 10 mg PO DAILY #90 caps 02/28/23 propranolol 120 mg capsule,24 120 mg PO BID #180 tab-caps 02/28/23 hr,extended release prednisone 20 mg tablet 40 mg PO DAILY #8 tabs 03/02/23 Allergies Allergy/AdvReac Type Severity Reaction Status Date / Time adhesive Allergy RASH Verified 02/28/23 11:46 latex Allergy RASH Verified 02/28/23 11:46 General Stated Complaint: GenMedical KATHE: 3 PFSH All Active Problems (Updated 03/02/23 @ 23:08 by JOCELIN Montaño) Left lumbar radiculopathy (Acute) Amenorrhea (Acute) Chronic abdominal pain (Chronic) Chronic diarrhea (Chronic) IBS (irritable bowel syndrome) (Chronic) Major depressive disorder, recurrent (Chronic) Attention deficit hyperactivity disorder (ADHD), predominantly inattentive type (Chronic) Generalized anxiety disorder (Chronic) PTSD (post-traumatic stress disorder) (Chronic) Lumbar back pain with radiculopathy affecting lower extremity (Chronic) Insomnia (Acute) Migraine headache (Chronic) Chronic pain of right knee (Chronic) Carpal tunnel syndrome (Chronic) Genital herpes (Chronic) Obesity, Class III, BMI 40-49.9 (morbid obesity) (Chronic) Contraceptive surveillance (Chronic) Medical History (Updated 03/02/23 @ 23:08 by JOCELIN Montaño) COVID-19 (~06/01/22) Surgical History History of bilateral tubal ligation S/P cholecystectomy Family History Mother No problems noted. Father Sleep apnea Social History Smoking/Tobacco Use Status: Never Second Hand Exposure: Yes Smoking risk assessment performed?: Yes Alcohol Intake: never Drug use: Occasionally Substance use type: marijuana Caregiver/Support person: No Household members: children Housing: apartment Number of Children: 5 Do you need help understanding health information?: Rarely Pets and animals: Yes Pets and animals: cat(s) Sexually active: Yes Do you think of yourself as: straight/heterosexual Current gender identity: female What is your relationship status?: never How often do you talk on the phone with friends or family?: decline to answer How often do you get together with friends or relatives?: decline to answer How often do you attend jehovah's witness or restorationist services?: decline to answer Do you belong to any clubs or organized social groups?: no Panel score (0-1 are the most socially isolated patients): 0 What type of physical activity do you participate in: walking Duration: 15-30 minutes/day Frequency: 1-2 times per week Jennifer/Temple: No preference Seatbelt use: always Drive intox or ride w/intox class a regional truck driver: No Working smoke detector in home: Yes Fire extinguisher in home: Yes Carbon monox detector in home: Yes Firearms in home: No Do you feel safe at home: Yes Do you feel safe in your relationship?: Yes Female Reproductive History Menstrual control method: progesterone injection History History 4 Para Hx # Term Pregnancies 4 Multiple births 1 Hx # Pregnancies Ectopic pregnancies AB induced Hx Number of Living Children AB spontaneous Course Vital Signs Vital signs: Vital Signs Temperature 36.0 C L 03/02/23 22:49 Pulse 69 03/02/23 22:49 Respiratory Rate 20 03/02/23 22:49 Blood Pressure 130/87 03/02/23 22:49 Pulse Oximetry 98 03/02/23 22:49 Temperature 36.0 C L 03/02/23 22:49 Temperature Source Temporal Artery Scan 03/02/23 22:49 Pulse 69 03/02/23 22:49 Respiratory Rate 18 03/02/23 23:05 Respiratory Effort Normal, Non-Labored 03/02/23 23:05 Respiratory Depth Normal 03/02/23 23:05 Respiratory Pattern Normal 03/02/23 23:05 Blood Pressure 130/87 03/02/23 22:49 Blood Pressure Position Sitting 03/02/23 22:49 Pulse Oximetry 98 03/02/23 22:49 Oxygen Delivery Method Room Air 03/02/23 22:49 Oxygen Flow Rate 0 03/02/23 22:49 Pain Level 10 03/02/23 22:49 Lab/Test Results Lab/Test Results: POC- Test(urine) Negative
[2023-03-02] MEDS: predniSONE 20 MG TAB 40 MG PO (23:13)
[2023-03-02] MEDS: diazePAM 5 MG TAB PO (23:24)
== END 2023-03-02 23:25 | disposition home or self-care (01) ==
PROVIDERS: Emergency Provider Physician Assistant; PCP Nurse Practitioner Family
DX: M54.16 Radiculopathy, lumbar region (principal)
CPT/HCPCS: 81025; 99283; 99284; J7512

== ENCOUNTER 2023-08-06 09:12 | Outpatient (CLI) | payer OTHER, MEDICAID, SELFPAY ==
[2023-08-06 12:23] LABS: Anion Gap 10.9 mmol/L (3-11); BUN 10 mg/dL (7-18); CO2 21.1 mmol/L (21.0-32.0); Calcium 9.2 mg/dL (8.5-10.1); Chloride 106 mmol/L (98-107); Estimated GFR 72.13 (mL/min/1.73m2); Glucose 93 mg/dL (74-106); Potassium 3.8 mmol/L (3.5-5.1); Sodium 138 mmol/L (136-145)
[2023-08-06 12:52] LABS: Vitamin D 25 Total 18.7 ng/mL (30-100)
[2023-08-06 19:23] LABS: HIV-1/2 Ag & Ab Screen Negative (Negative)
[2023-08-06 19:26] LABS: Hepatitis C Ab w Rflx HCV PCR Negative (Negative)
[2023-08-07 10:45] LABS: Syphilis Serology (RPR) Negative (Negative)
== END 2023-08-06 09:13 | disposition home or self-care (01) ==
LOC: LOS 09:12
PROVIDERS: PCP Nurse Practitioner Family; Referring Provider Nurse Practitioner Family; Visit Provider Nurse Practitioner Family
DX: E55.9 Vitamin D deficiency, unspecified (principal); Z00.00 Encounter for general adult medical examination without abnormal findings
CPT/HCPCS: 36415; 80048; 82306; 86803; 87389; 86592

== ENCOUNTER 2023-08-06 11:45 | Outpatient (REF) | payer OTHER, MEDICAID, SELFPAY ==
[2023-08-06 14:20] LABS: *AMPHETAMINES SCREEN URINE Negative (Negative); *BARBITURATES SCREEN URINE Negative (Negative); *BENZODIAZEPINES SCREEN URINE Negative (Negative); Cannabinoids THC Negative (Negative); Cocaine Screen,Urine Negative (Negative); METHADONE URINE SCREEN Negative (Negative); OPIATES URINE SCREEN Negative (Negative)
[2023-08-06 14:23] LABS: Tricyclic Antidepressants Negative (Negative)
[2023-08-07 13:53] LABS: Chlamydia Result Negative (Negative); GC Result Negative (Negative)
== END 2023-08-06 11:46 | disposition home or self-care (01) ==
LOC: LBN 11:45
PROVIDERS: PCP Nurse Practitioner Family; Visit Provider Nurse Practitioner Family
DX: N89.8 Other specified noninflammatory disorders of vagina; Z11.3 Encounter for screening for infections with a predominantly sexual mode of transmission; Z12.4 Encounter for screening for malignant neoplasm of cervix
CPT/HCPCS: 80307; 87491; 87591; 87480; 87510; 87660

== ENCOUNTER 2023-08-23 17:13 | Outpatient (REF) | payer OTHER, MEDICAID, SELFPAY | END 2023-08-23 17:14 | disposition home or self-care (01) | LOC: LBN 17:13 | PROVIDERS: PCP Nurse Practitioner Family; Visit Provider Physician Assistant | DX: J02.9 Acute pharyngitis, unspecified (principal); Z20.828 Contact with and (suspected) exposure to other viral communicable diseases | CPT/HCPCS: 87081 ==

== ENCOUNTER 2024-12-09 10:43 | Outpatient (REF) | payer MEDICARE, MEDICAID, SELFPAY ==
[2024-12-09 14:23] LABS: *AMPHETAMINES SCREEN URINE Negative (Negative); *BARBITURATES SCREEN URINE Negative (Negative); *BENZODIAZEPINES SCREEN URINE Negative (Negative); Cannabinoids THC Negative (Negative); Cocaine Screen,Urine Positive (Negative); METHADONE URINE SCREEN Negative (Negative); OPIATES URINE SCREEN Negative (Negative)
[2024-12-09 14:24] LABS: Tricyclic Antidepressants Negative (Negative)
== END 2024-12-09 10:44 | disposition home or self-care (01) ==
LOC: LBN 10:43
PROVIDERS: PCP Nurse Practitioner Family; Visit Provider Nurse Practitioner Family
DX: F90.0 Attention-deficit hyperactivity disorder, predominantly inattentive type; F41.1 Generalized anxiety disorder
CPT/HCPCS: 80307

== ENCOUNTER 2024-12-15 07:21 | Outpatient (CLI) | payer MEDICARE, MEDICAID, SELFPAY ==
[2024-12-15 08:17] LABS: Hemoglobin A1C 5.2 % (<5.7)
[2024-12-15 09:31] LABS: *AMPHETAMINES SCREEN URINE Negative (Negative); *BARBITURATES SCREEN URINE Negative (Negative); *BENZODIAZEPINES SCREEN URINE Negative (Negative); Cannabinoids THC Negative (Negative); Cocaine Screen,Urine Negative (Negative); METHADONE URINE SCREEN Negative (Negative); OPIATES URINE SCREEN Negative (Negative)
[2024-12-15 09:32] LABS: Tricyclic Antidepressants Negative (Negative)
[2024-12-15 09:44] LABS: BUN 12 mg/dL (7-18); CO2 19.1 mmol/L (21.0-32.0); Calcium 8.8 mg/dL (8.5-10.1); Calculated LDL 91 mg/dL (<100); Cholesterol 178 mg/dL (<200); Estimated GFR 71.24 (mL/min/1.73m2); Glucose 113 mg/dL (74-106); HDL Cholesterol 56 mg/dL (>or=50); Triglyceride 157 mg/dL (<150); Vitamin B12 233 pg/mL (193-986); Vitamin D 25 Total 12 ng/mL (30-100)
[2024-12-15 09:47] LABS: Anion Gap 9.9 mmol/L (3-11); Chloride 112 mmol/L (98-107); Potassium 3.5 mmol/L (3.5-5.1); Sodium 141 mmol/L (136-145)
== END 2024-12-15 07:22 | disposition home or self-care (01) ==
LOC: LBO 07:22
PROVIDERS: PCP Nurse Practitioner Family; Visit Provider Nurse Practitioner Family
DX: E66.9 Obesity, unspecified (principal); E78.5 Hyperlipidemia, unspecified; R73.01 Impaired fasting glucose; E55.9 Vitamin D deficiency, unspecified; K21.9 Gastro-esophageal reflux disease without esophagitis; F90.0 Attention-deficit hyperactivity disorder, predominantly inattentive type
CPT/HCPCS: 36415; 80048; 80061; 80307; 82306; 82607; 83036

== ENCOUNTER 2025-01-21 00:25 | Outpatient (CLI) | payer MEDICARE, MEDICAID, SELFPAY ==
--- NOTE | 2025-01-21 14:23 | DI.RAD_ITS ---
Exam(s) XR THUMB RT EXAM: XR THUMB RT CLINICAL HISTORY: thumb pain,? fracture. TECHNIQUE: 2D digital imaging was performed. COMPARISON: CR XR FINGER RT INDEX from 09/07/2019 FINDINGS: 3 views No evidence of acute fracture nor dislocation of the thumb. No degenerative changes. No osseous les ions. No radiopaque foreign bodies. On the lateral view there is a corticated density off the palm are aspect of the distal thumb at the interphalangeal joint. This is probably a small sesamoid bone at this level. IMPRESSION: As above but no obvious fractures in the thumb. No significant degenerative changes in the thumb articulations. DATA REPOSITORY: RADIATION DOSE DELIVERED:
== END 2025-01-21 00:45 ==
LOC: DI 00:25
PROVIDERS: PCP Nurse Practitioner Family; Visit Provider Physician Assistant
DX: M79.641 Pain in right hand (principal)
CPT/HCPCS: 73140

== ENCOUNTER 2025-02-03 11:18 | Outpatient (CLI) | payer MEDICARE, MEDICAID, SELFPAY ==
--- NOTE | 2025-02-03 11:15 | DI.RAD_ITS ---
Exam(s) XR CHEST 2V PA LATERAL EXAM: XR CHEST 2V PA LATERAL CLINICAL HISTORY: Cough, R05.9. TECHNIQUE: 2D digital imaging was performed. COMPARISON: CR,XR XR PORTABLE CHEST AP from 06/01/2022 FINDINGS: 2 views: Heart size is normal. The mediastinum is not widened. Lungs are clear. No infiltrates nor pleural effusions. IMPRESSION: No acute pulmonary findings. DATA REPOSITORY: RADIATION DOSE DELIVERED:
== END 2025-02-03 11:38 ==
LOC: DI 11:19
PROVIDERS: PCP Nurse Practitioner Family; Visit Provider Nurse Practitioner Family
DX: R05.9 Cough, unspecified (principal)
CPT/HCPCS: 71046